=== PATIENT | male | born 1935 | race Caucasian/White ===

== ENCOUNTER → 2019-01-22 09:11 | Outpatient (CLI) | payer OTHER, SELFPAY ==
--- NOTE | 2019-01-22 | DI.MRI.S_ITS ---
PROCEDURE: MR SHOULDER RT WO CON INDICATIONS: Pain in right shoulder TECHNIQUE: Noncontrast oblique coronal T2 fast spin echo with fat saturation, oblique sagittal T1 spin echo and T2 fast spin echo with fat saturation, axial T1 spin echo and T2 fast spin echo with fat saturation through the shoulder. COMPARISON: None. FINDINGS: Image quality: Diagnostic. Rotator cuff: There is a moderate-sized full-thickness tear identified at the junction of the supraspinatus and infraspinatus tendons that measures approximately 1.5 cm in transverse dimension with retraction of the torn tendon fragments by up to approximately 2.4 cm. Additional areas of partial-thickness tearing involving the anterior distal supraspinatus tendon and the posterior distal infraspinatus tendon is present with corresponding tendinopathy. There is atrophy of these corresponding muscles. There is increased signal and thickening involving the teres minor and subscapularis tendons without significant tearing. No significant atrophy involving the subscapularis or teres minor muscles is identified. Bones and bursae: No acute fracture, dislocation, or suspicious osseous lesion is appreciated involving the osseous structures of the right shoulder. Mild degenerative changes of the glenohumeral joint are present. There are moderate degenerative changes of the acromioclavicular joint. There is a small glenohumeral joint effusion next many teeth with the subacromial subdeltoid bursa. Capsule and soft tissues: Evaluation of the labrum and the glenohumeral ligaments is difficult without intra-articular contrast. No acute ligamentous injuries are evident. There likely is a small posterosuperior labral tear extending from the 12 o'clock position to the 1 to 2 o'clock position, given increase signal at the labral cartilaginous junction along the posterosuperior labrum (image 12, series 13). The long head of the biceps tendon is normally positioned within the bicipital groove. However, there is thickening and increased signal identified involving the intra-articular portion of this tendon. There is a large partly septated fluid collection identified within the anterior aspect of the subacromial subdeltoid bursa, likely representing fluid from the full-thickness tear of the rotator cuff. IMPRESSION: 1. Moderate-sized full-thickness tear of the rotator cuff at the junction of the supraspinatus and infraspinatus tendons with additional areas of partial-thickness tearing and moderate tendinopathy. Muscle atrophy is suggestive of a chronic process. 2. Moderate subscapularis and teres minor tendinopathy without significant tearing. 3. Large amount of fluid within the subacromial subdeltoid bursa probably is related to the full-thickness tear of the rotator cuff. Clinical correlation to exclude bursitis is recommended. 4. Probable small posterosuperior labral tear with involvement of the biceps anchor. 5. Moderate tendinopathy with possible intrasubstance partial-thickness tearing involving the intra-articular portion of the biceps tendon. 6. Mild to moderate degenerative changes of the glenohumeral and acromioclavicular joints. 7. Small glenohumeral joint effusion. Dictated by: Alejo Orozco M.D. on 01/22/2019 at 11:42 Approved by: Alejo Orozco M.D. on 01/22/2019 at 11:48
== END ==
PROVIDERS: PCP Family Medicine; Visit Provider Nurse Practitioner Family
DX: M25.511 Pain in right shoulder (principal); M75.121 Complete rotator cuff tear or rupture of right shoulder, not specified as traumatic; M19.011 Primary osteoarthritis, right shoulder; M25.411 Effusion, right shoulder
CPT/HCPCS: 73221

== ENCOUNTER → 2019-09-30 08:41 | Outpatient (CLI) | payer OTHER, SELFPAY ==
--- NOTE | 2019-09-30 08:43 | DI.RAD.S_ITS ---
PROCEDURE: XR LUMBAR SPINE MIN 4V INDICATIONS: ARTHROPATHY OF LUMBAR FACET JOINT TECHNIQUE: 5 views of the lumbar spine were acquired. COMPARISON: None. FINDINGS: Bones: Multilevel degenerative endplate sclerosis and spurring. Diffuse facet arthropathy. Diffuse mild narrowing of the lumbar disc spaces with relative sparing at L3-L4. There is mild to moderate disc height loss at L1-L2. No fracture identified. Soft tissues: Overlying bowel gas pattern is normal. No suspicious soft tissue calcifications. Scattered vascular calcifications seen in the aorta. There are questionable bilateral renal calcifications however this could be superimposed debris within the bowel Oblique images: No pars defects. IMPRESSION: Mild to moderate L1-L2 disc degeneration and mild discogenic changes at the remaining lumbar spine with relative sparing at L3-L4. Multilevel facet arthropathy Dictated by: Marin Quick M.D. on 09/30/2019 at 9:38 Approved by: Marin Quick M.D. on 09/30/2019 at 9:57
== END ==
PROVIDERS: PCP Family Medicine; Visit Provider Physical Medicine & Rehabilitation
DX: M47.27 Other spondylosis with radiculopathy, lumbosacral region (principal); M51.16 Intervertebral disc disorders with radiculopathy, lumbar region
CPT/HCPCS: 72110

== ENCOUNTER 2020-11-23 07:49 | Inpatient (IN) | payer MEDICARE, SELFPAY ==
[2020-11-23] VITALS (14 sets, daily range): BP systolic 112–175; BP diastolic 58–80; PULSE 50–70; RESP 14–18; TEMP 36.2–37; O2SAT 92–98; BMI 24.4
--- NOTE | 2020-11-23 06:00 | DI.RAD.S_ITS ---
PROCEDURE: XR SHOULDER RT 1V INDICATIONS: post op films TECHNIQUE: Single frontal view of the shoulder were acquired. COMPARISON: None. FINDINGS: Bones: No fractures or dislocations. No suspicious bony lesions. Visualized ribs appear intact. Soft tissues: No suspicious soft tissue calcifications. IMPRESSION: Normal alignment after right total shoulder arthroplasty. Dictated by: Kyle Damon M.D. on 11/23/2020 at 11:47 Approved by: Kyle Damon M.D. on 11/23/2020 at 11:47
[2020-11-23] MEDS: PREGABALIN 75 MG CAPSULE PO (08:15)
[2020-11-23] MEDS: ACETAMINOPHEN 325 MG TABLET 975 MG PO (08:15)
[2020-11-23] MEDS: LACTATED RINGERS 1,000 ML 42 ML IV (08:16)
--- NOTE | 2020-11-23 09:02 | PM.PREOP ---
Pre-operative Note COVID-19 COVID-19 status: Negative Result date/Date tested (Pos, Neg/Pending): 11/21/20 Interval Note History & Physical reviewed/Exam performed by Physician: Yes Changes to H&P: No
[2020-11-23] MEDS: fentaNYL 100 MCG/2 ML INJ IV (09:09)
[2020-11-23] MEDS: MIDAZOLAM 5 MG/ML VIAL 2 MG IV (09:10)
--- NOTE | 2020-11-23 09:22 | SUR.PREOP ---
Block start time [904] . Monitoring initiated and maintained throughout procedure. Oxygen and medications given per anesthesiologist instructions. Patient remained stable throughout procedure, no adverse reactions noted. Block end time [919
[2020-11-23] MEDS: CEFAZOLIN 2 GM/100 ML FROZ.PIGGY IV (09:24)
[2020-11-23] MEDS: TRANEXAMIC ACID 1,000 MG VIAL 1000 MG INJ ×2 (09:45→11:00)
--- NOTE | 2020-11-23 09:56 | SUR.OPER ---
Beach chair with Schlein shoulder positioner. Lower body on padded OR bed. Head in foam padded head cradle, secured with straps. Non-operative arm secured <90 degrees abduction. Pillow under knees. Safety belt at thigh. Cloth tape over blanket over lower legs.
[2020-11-23] MEDS: BUPIVACAINE 0.5% W/ EPI (PF) 30 ML VIAL INJ (10:59)
--- NOTE | 2020-11-23 11:19 | P.OP_ITS ---
Operative Date/Time/Diagnoses Date of procedure: 11/23/20 Time of procedure: 11:19 Pre-op diagnosis: Right shoulder massive irreparable rotator cuff tear Post-op diagnosis: same Procedure & Clinicians Procedure: Right reverse total shoulder replacement Same procedure as scheduled: Yes Indications: The patient is had chronic right shoulder pain unresponsive to nonoperative therapies. Radiographic studies have revealed changes consistent with a massive rotator cuff tear. They have elected to proceed with reverse total shoulder replacement after discussion of the risks benefits and alternatives. Risks discussed included but were not limited to: Failure to improve, instability, infection, nerve damage, deep venous thrombosis, pulmonary embolism, stroke, coma, myocardial infarction and . Surgeon: Lester Madrid Internet Network Specialist: Clive Salinas Click Yes if Unassisted: No Anesthesia Type: General, Peripheral nerve block and Local Operative Notes Findings: Massive rotator cuff tear encompassing the upper 80% of the subscapularis the entirety of the supraspinatus and infraspinatus with relative preservation of the teres minor. Closure Type: primary Specimen(s): none sent Prosthetic devices, grafts, tissues, transplants, or devices: Implants used in this procedure were manufactured by the [employer] and included a [employer] reverse total shoulder system with a 24 mm modular base plate with a 30 mm central screw. Three 5.5 mm locking screws were used measuring 24, 28 and 16 mm in length. The glenosphere was a 33+ 4/24. There was a retaining screw inserted with this. On the humeral side there was a size 10 humeral stem with a 36 neutral suture cup and a 36+ 6/33 humeral insert. Applied: implant(s) Estimated Blood Loss (mL): 200 Blood products transfused: none Procedure in detail: The patient was seen in the preoperative area where they identified the right shoulder as the operative site and this was marked with my initials. They received preoperative antibiotics and underwent the induction of an interscalene block. They were taken to the operating room and placed on the operating room table in a supine position with the underwent the induction of a general anesthetic. There were then repositioned in the ?beach chair? position using a dedicated positioner. All pressure points were well padded. The knees were slightly bent to prevent tension on the sciatic nerves. The right arm was prepared from the fingertips to the base of the neck with ChloraPrep in the usual fashion and draped through sterile drapes. An approximately 15 cm incision was created starting at the clavicle just above the coracoid and going to the deltoid insertion. The deltopectoral interval was used to access the shoulder, the patient had of this vestigial cephalic vein and this was ligated.. The upper 1 cm of the pectoralis major was released. The biceps tendon had ruptured. There was no remaining upper subscapularis tendon this had been replaced with scar and it was released along with the remaining lower 20% of the subscapularis tendon. The shoulder was dislocated and a proximal humeral osteotomy performed using an intra medullary guide. A proximal humeral protector was then placed. Retractors were placed access the glenoid. The soft tissues were removed circumferentially around the glenoid. The guide was used to drill the guide hole in the center of the inferior glenoid. The Reamer was used until more than 70% contact was obtained. The peripheral Reamer was used. The central hole was enlarged to accommodate the screw. The depth was measured and this was tapped. The 24 mm glenoid base plate was then screwed into position. Three of the 4 holes were then filled with the appropriate length locking screws. The anterior hole had very little purchase and was left open. The glenosphere was then placed after checking for rotational and axial stability on the Mcneal taper. We then turned our attention to the humerus The proximal humeral protector was removed. Broaching was then performed beginning with a small broach and working up until a good fit with excellent rotational stability was obtained. The guide for the proximal metaphyseal reamer was then applied and the metaphysis was reamed appropriately. The trial metaphyseal portion of the body was then applied to the broach. Trial reduction s were performed and the size of the cup was optimized. Stability was checked in maximal internal and external rotation and range of motion was checked to allow access to the top of the head, internal rotation to an excess of 50? in the ?scarecrow position? and the ability to reach the groin. The appropriate final prosthetic components were then opened. The humeral prosthetic was then impacted into position. The humeral cup was placed. The joint was relocated and irrigated. The deltopectoral interval was reapproximated with 0 Vicryl. Subcutaneous layer was closed with interrupted 3-0 Vicryl and skin with a running 3 0 V lock suture and Dermabond. Subcutaneous tissues were then infiltrated with 0.5% Marcaine for postoperative pain control. An Aquacel Ag dressing was applied and the patient's arm was placed in a sling. The patient was then transferred to the recovery room in good condition having tolerated the procedure well. Complications: none Post-operative Condition: stable Disposition: PACU Plan for aftercare: The patient will be allowed to do pendulum exercises and to use his arm in front of his body below shoulder level. He will likely be discharged tomorrow when he is stable for his home environment.
--- NOTE | 2020-11-23 11:46 | PC.NURSE ---
Day shift: Pt on unit from PACU at approx 1145. Denies any pain or nausea. Oriented to room and call light. Tolerating SCD's. Aquacel is CDI. Agrees to not get OOB w/o help from staff. Rt arm is numb w/ good radial pulse. Will continue w/ post-op plan of care.
[2020-11-23] MEDS: LACTATED RINGERS 1,000 ML 100 ML IV (11:59)
[2020-11-23] MEDS: ACETAMINOPHEN 325 MG TABLET 650 MG PO ×2 (14:09→20:21)
--- NOTE | 2020-11-23 14:23 | PC.NURSE ---
Day shift: Pt OOB w/ PT this afternoon. Ambulated in halls and tolerated well. VS remain WNL. RA 95%. SUsing I.S. as instructed. Rt arm numbness remains. Denies any rt arm or shoulder pain. Aquacel CDI. Denies any nausea. Good fluid intake. Voided approx 400ml clear yellow urine.
--- NOTE | 2020-11-23 14:30 | PT.IIE ---
Current Diagnoses Other specific arthropathies, not elsewhere classified, right shoulder (11/23/20) Primary osteoarthritis, right shoulder (11/23/20) Surgery Performed Operation Date: 11/23/20 09:15 Actual Procedures p Total Shoulder Arthroplasty - Reverse(Right) - Lester Madrid MD Surgical History (Last Updated 11/17/20 @ 07:24 by Eloina Underwood, RN) Cataract extraction status History of colonoscopy Status post hernia repair Status post rotator cuff repair Medical History (Last Updated 11/17/20 @ 07:31 by Eloina Underwood, RN) Cardiac murmur 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 arthropathy, lumbar Former smoker History of echocardiogram (~2019) Hyperlipidemia Labile hypertension Left ventricular hypertrophy Lumbosacral spondylosis with radiculopathy Moderate aortic stenosis Pneumonia Primary osteoarthritis of right shoulder Prostatic hypertrophy 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 Spinal stenosis Physical Therapy Inpatient Evaluation/Re-Eval M1 PT/OT-IP Prior Functional Status Start: 11/23/20 12:24 Freq: NEEDED Status: Active Protocol: Document 11/23/20 14:30 AW (Rec: 11/23/20 15:04 AW [id number]) Medical Review Prior Functional Status Medical History Reviewed Yes Communication WNL. Pt is an effective verbal communicator. Mobility and Gait Pt is independently mobile without meaningful limit. 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 Activities of Daily Living and IADL's Pt states he has needed his to help wash his back but has otherwise remained independent with ADL's and IADL's. Social History Household Members spouse Living Arrangements House Number of Floors (Floors) One Floor Number of Stairs To Enter/Railing? 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 He also has neighbors and latter-day friends who can check in. M2 PT-IP Current Condition Start: 11/23/20 12:24 Freq: NEEDED Status: Active Protocol: Document 11/23/20 14:30 AW (Rec: 11/23/20 15:04 AW [id number]) Physical Therapy Current Condition Current Condition Evaluation Date 11/23/20 Treatment Diagnosis R reverse TSA; dec indep with ADL's Onset Date 11/23/20 Precautions Shoulder Precautions Sling,PROM,Internal Rotation to Body,No External Rotation, No Abduction,Forward Flexion to 90 degrees,Pendulums Brace soft sling for all OOB activity M3 PT-IP Subjective Start: 11/23/20 12:24 Freq: NEEDED Status: Active Protocol: Document 11/23/20 14:30 AW (Rec: 11/23/20 15:04 AW [id number]) Subjective Physical Therapy Visit Type Type Initial Evaluation Visit Start Time 13:54 Visit Stop Time 14:30 Total Visit Minutes 26 Number of ALUMNI RELATIONS COORDINATOR Visits 0 Physical Therapy Visit Comments Patient Comments Pt is willing to participate with PT Patient Goals Return to farming activity and table tennis. Therapy Pain Assessment Pain When Pain Assessed During Mobility Pain Present Pain Present Denied Pain M4 PT-IP Mobility and Gait Start: 11/23/20 12:24 Freq: NEEDED Status: Active Protocol: Document 11/23/20 14:30 AW (Rec: 11/23/20 15:04 AW [id number]) PT-Bed Mobility Assessment Sit to Supine Sit to Supine Standby Assistance,Head of Bed Elevated Scooting Scooting Up and Down in Bed Standby Assistance PT-Transfer Assessment Sit to and From Stand Sit to and from Stand Contact Guard Assistance Equipment Transfer Assistive Device Gait Belt Orthotic/Prosthetic Devices or Brace: Yes Transfers Transfer Destination Bed Transfer Technique Stand Step Pivot Transfer Ability Level of Assist Contact Guard Assistance Comments Mobility Comments Pt was sitting up in the bed with shoulder sling loosely applied as PT arrived. With HOB elevated, pt completed supine to sit SBA with no complaint of pain. He stood [facility] and walked to the sink for education on proper sling fitting. Pt was able to stand at the sink with good balance SBA as PT adjusted the sling. Pt ambulated to the bathroom and used the urinal to void in standing SBA. PT assisted pt to don his face mask for ambulation in the hallway. Pt walked a total of 250 feet SBA to [facility] before returning to the room and transferring back to bed SBA. Pt was positioned with call light and all needs within reach and bed alarm armed for safety. Gait Assessment Gait Gait Assistance Required: Standby Assistance,Contact Guard Assist Distance (Feet) 250 Able to Maintain Weight Bearing Status Yes During Gait Assistive Devices Assistive Device Gait Belt Orthotic/Prosthetic Devices or Brace: Yes Gait Deviations General Gait Pattern Antalgic,Decreased Feet Clearance,Lateral Trunk Lean Factors Limiting Gait Function Factors Limiting Gait Function Decreased Activity Tolerance, Poor Balance Comments Gait Comments Pt ambulated without AD and required SBA with increase to CGA around corners and around obstacles. Stair Climbing Assessment Comments Stair Climbing Comments Not assessed. No stairs at home. PT-Balance Assessment Sitting Balance and Reactions Static Sitting Balance Ability Good Dynamic Sitting Balance Ability Good Standing Balance and Reactions Static Standing Balance Ability Good Dynamic Standing Balance Ability Good Device Used no AD M5 PT-IP Objective Assessments Start: 11/23/20 12:24 Freq: NEEDED Status: Active Protocol: Document 11/23/20 14:30 AW (Rec: 11/23/20 15:04 AW [id number]) Orientation Orientation/Cognition Level of Alertness Alert Orientation Name,Day of Week,Place, Situation Language Function Ability No Deficits Noted Safety Awareness Understands Safety Issues Memory Description No Deficits Noted Gross Range of Motion Upper Extremity ROM Assessment Right Impaired Lower Extremity ROM Assessment Within Functional Limits Strength Upper Extremity Strength Assessment Right Impaired Lower Extremity Strength Assessment Within Functional Limits Coordination Assessment Gross Coordination Gross Coordination WNL Sensation Assessment Sensation Gross Sensation Right UE Impaired Light Touch Impaired Proprioception (Position) Impaired Sensation Description Numbness Comments Sensation Comments Pt reports numbness in RUE with distal more affected than proximal. M6 PT-IP Treatment Start: 11/23/20 12:24 Freq: NEEDED Status: Active Protocol: Document 11/23/20 14:30 AW (Rec: 11/23/20 15:04 AW [id number]) Physical Therapy Treatment Exercises Exercises Shoulder Pendulums,Elbow Flexion/Extension,Wrist ROM, Hand ROM Education Education Provided Precautions,Weight Bearing Status,Post-Op Packet,Safety Other Treatments Other Treatment Performed Provided education on role of PT, plan of care, post-op precautions, and proper sling fitting for optimal support. M7 PT-IP Assessment and Plan Start: 11/23/20 12:24 Freq: NEEDED Status: Active Protocol: Document 11/23/20 14:30 AW (Rec: 11/23/20 15:04 AW [id number]) PT Summary Assessment and Plan Potential Rehabilitation Potential Excellent Status of Condition at Evaluation Stable Summary Impairments ROM,Strength,Balance,Bed Mobility,Transfers,Gait Assessment Summary Jose is an active 85 yo man seen for PT evaluation on POD0 following right reverse TSA. He is independent in all regards at baseline. 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 On evaluation, pt required SBA to CGA with all mobility and has limited sensation in RUE. PT anticipates pt will be safe to discharge home with assist once medically cleared. Goals Bed Mobility Goal Independent Transfer Goal Independent Gait Goal Independent Gait Distance 250 Other Goals - bed mobility to be completed with HOB flat Days to Meet Goals 2 Frequency of Treatment Frequency Of Treatment Twice a Day Treatment Plan Physical Therapy Treatment Plan Bed Mobility Training,Transfer Training,Gait Training, Therapeutic Exercise,Balance Retraining,Post Op Education, Discharge Planning,Hot or Cold Pack,Neuromuscular Re-ed Other Recommendations and Next Treatment review sling fitting, mobility Focus as tolerated Recommendations To Nursing Amount of Assist Needed 1 Person Assist Discharge Recommendations PT Discharge Recommendations Home with Assistance Transportation Needs at Discharge Private Vehicle
[2020-11-23] MEDS: ASPIRIN EC 81 MG TABLET PO (20:20)
[2020-11-23] MEDS: DOCUSATE 100 MG CAPSULE PO (20:20)
[2020-11-24 00:30] VITALS: BP 114/60; PULSE 55; RESP 16; TEMP 37.2; O2SAT 95
[2020-11-24 04:45] VITALS: BP 130/64; PULSE 57; RESP 18; TEMP 36.6; O2SAT 95
[2020-11-24 05:32] LABS: Hematocrit 34.6 % (41-53); Hemoglobin 11.4 g/dL (13.5-17.5)
[2020-11-24 07:22] VITALS: BP 117/60; PULSE 56; RESP 18; TEMP 36.6; O2SAT 95
--- NOTE | 2020-11-24 07:47 | P.PN_ITS ---
Subjective Subjective Date Patient Seen: 11/24/20 Time Patient Seen: 07:47 Interval history: POD#1 s/p right reversed total shoulder arthroplasty with Dr. Madrid. Patient doing very well this morning. No complaints. He is eating and voiding without difficulty or assistance. Exam Vital Signs (past 8 hours): - 11/24/20 00:30 11/24/20 04:45 Temperature 98.9 F 97.9 F Pulse Rate 55 L 57 L Respiratory Rate 16 18 Blood Pressure 114/60 130/64 Pulse Oximetry 95 95 Oxygen Delivery Method Room Air Oxygen Flow Rate 0 Narrative Exam Narrative: Patient is sitting in bedside chair no acute distress. He is alert orient x3. Dressing on right shoulder is CDI. Sensation intact to light touch throughout bilateral upper extremities. Radial pulses symmetrical. 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 Wearing a well-fitting sling. 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 The patient will be allowed to do pendulum exercises and to use his arm in front of his body below shoulder level. ASA 81 mg b.i.d. for DVT prophylaxis. [employer] script provided for home. Patient will likely discharge home this afternoon.
[2020-11-24] MEDS: DOCUSATE 100 MG CAPSULE PO (08:17)
[2020-11-24] MEDS: CELECOXIB 200 MG CAPSULE PO (08:18)
[2020-11-24] MEDS: ASPIRIN EC 81 MG TABLET PO (08:18)
[2020-11-24] MEDS: ACETAMINOPHEN 325 MG TABLET 650 MG PO (08:19)
[2020-11-24 08:25] VITALS: BP 117/60; PULSE 54
[2020-11-24 08:26] VITALS: BP 117/60; PULSE 54
[2020-11-24 09:00] VITALS: O2SAT 97
--- NOTE | 2020-11-24 09:25 | PT.IPTN ---
Current Diagnoses Other specific arthropathies, not elsewhere classified, right shoulder (11/23/20) Primary osteoarthritis, right shoulder (11/23/20) Surgery Performed Operation Date: 11/23/20 09:15 Actual Procedures p Total Shoulder Arthroplasty - Reverse(Right) - Lester Madrid MD Physical Therapy Treatment Note M2 PT-IP Current Condition Start: 11/23/20 12:24 Freq: NEEDED Status: Active Protocol: Document 11/23/20 14:30 AW (Rec: 11/23/20 15:04 AW [id number]) Physical Therapy Current Condition Current Condition Evaluation Date 11/23/20 Treatment Diagnosis R reverse TSA; dec indep with ADL's Onset Date 11/23/20 Precautions Shoulder Precautions Sling,PROM,Internal Rotation to Body,No External Rotation, No Abduction,Forward Flexion to 90 degrees,Pendulums Brace soft sling for all OOB activity M3 PT-IP Subjective Start: 11/23/20 12:24 Freq: NEEDED Status: Active Protocol: Document 11/24/20 09:25 AW (Rec: 11/24/20 10:15 AW [id number]) Subjective Physical Therapy Visit Type Type Treatment Note Visit Start Time 09:07 Visit Stop Time 09:25 Total Visit Minutes 18 Number of MANAGER FORMS Visits 0 Physical Therapy Visit Comments Patient Comments Can we review these exercises ? Therapy Pain Assessment Pain When Pain Assessed During Mobility Pain Present Pain Present Denied Pain M4 PT-IP Mobility and Gait Start: 11/23/20 12:24 Freq: NEEDED Status: Active Protocol: Document 11/24/20 09:25 AW (Rec: 11/24/20 10:15 AW [id number]) PT-Bed Mobility Assessment Supine to Sit Supine to Sit Standby Assistance Sit to Supine Sit to Supine Standby Assistance Scooting Scooting Up and Down in Bed Standby Assistance PT-Transfer Assessment Sit to and From Stand Sit to and from Stand Standby Assistance Equipment Transfer Assistive Device Gait Belt Orthotic/Prosthetic Devices or Brace: Yes Transfers Transfer Destination Chair Transfer Technique Stand Step Pivot Transfer Ability Level of Assist Standby Assistance Comments Mobility Comments Pt was sitting up in the chair as PT arrived. He stood, walked around the room, went to the mirror for continued education on sling donning and doffing, and then ambulated around the unit without AD SBA . On return to the room, pt transferred to the chair SBA and was left with call light and all needs in reach. Gait Assessment Gait Gait Assistance Required: Standby Assistance Distance (Feet) 350 Able to Maintain Weight Bearing Status Yes During Gait Assistive Devices Assistive Device Gait Belt Orthotic/Prosthetic Devices or Brace: Yes Gait Deviations General Gait Pattern Antalgic,Decreased Feet Clearance Factors Limiting Gait Function Factors Limiting Gait Function Decreased Activity Tolerance Comments Gait Comments Pt requried no more than SBA at this encounter, demonstrating good safety awareness and obstacle navigation. Stair Climbing Assessment Evaluation Level of Assist On Stairs Standby Assistance Devices Stair Climbing Assistive Devices None Technique/Endurance Stair Climbing Direction Ascend and Descend Stair Climbing Technique Step Over Step Number of Steps Climbed 3 Stair Climbing Set # Repetitions (reps) 2 PT-Balance Assessment Sitting Balance and Reactions Static Sitting Balance Ability Good Dynamic Sitting Balance Ability Good Standing Balance and Reactions Static Standing Balance Ability Good Dynamic Standing Balance Ability Good Device Used no AD M5 PT-IP Objective Assessments Start: 11/23/20 12:24 Freq: NEEDED Status: Active Protocol: Document 11/23/20 14:30 AW (Rec: 11/23/20 15:04 AW [id number]) Orientation Orientation/Cognition Level of Alertness Alert Orientation Name,Day of Week,Place, Situation Language Function Ability No Deficits Noted Safety Awareness Understands Safety Issues Memory Description No Deficits Noted Gross Range of Motion Upper Extremity ROM Assessment Right Impaired Lower Extremity ROM Assessment Within Functional Limits Strength Upper Extremity Strength Assessment Right Impaired Lower Extremity Strength Assessment Within Functional Limits Coordination Assessment Gross Coordination Gross Coordination WNL Sensation Assessment Sensation Gross Sensation Right UE Impaired Light Touch Impaired Proprioception (Position) Impaired Sensation Description Numbness Comments Sensation Comments Pt reports numbness in RUE with distal more affected than proximal. M6 PT-IP Treatment Start: 11/23/20 12:24 Freq: NEEDED Status: Active Protocol: Document 11/24/20 09:25 AW (Rec: 11/24/20 10:15 AW [id number]) Physical Therapy Treatment Exercises Exercises Shoulder Pendulums,Elbow Flexion/Extension,Wrist ROM, Hand ROM Education Education Provided Precautions,Safety Other Treatments Other Treatment Performed Reviewed sling fitting and ROM exercises with pt able to return demonstrate. M7 PT-IP Assessment and Plan Start: 11/23/20 12:24 Freq: NEEDED Status: Active Protocol: Document 11/24/20 09:25 AW (Rec: 02/02/21 10:15 AW [id number]) PT Summary Assessment and Plan Summary Impairments ROM,Strength,Balance,Bed Mobility,Transfers,Gait Progress Towards Goals Progressing Toward Goals Assessment Summary Jose reports no pain but his right hand is noticably swollen. Notified RN of swelling. He completed all mobility SBA and shows good awareness of his surroundings and his current limitations. Pt is safe to discharge home with assist. Goals Bed Mobility Goal Independent Transfer Goal Independent Gait Goal Independent Gait Distance 250 Other Goals - bed mobility to be completed with HOB flat Frequency of Treatment Frequency Of Treatment Discharge Recommendations To Nursing Amount of Assist Needed Standby Assistance Discharge Recommendations PT Discharge Recommendations Home with Assistance Transportation Needs at Discharge Private Vehicle
--- NOTE | 2020-11-24 13:05 | CM.DANOTE ---
Discharge Planning/Care Management DCP: assessment: case received, EMR reviewed and d/c order noted. Met with pt; introduced self and role. Pt is found up, dressed, sitting on window seat in room. Pt is an 85 year old who admitted yesterday for a schedule R TSA. Payer: [facility] Surgeon: Dr. Madrid Pt has worked with PT today and has been moblizing independently in the halls, pushing IV pole. Shoulder sling in place. Pt confirms that [place] who is available for prn supportive care. He has a friend who will be picking him up at d/c. Discussed priority board process and pt confirmed this would be helpful. His friend should be here soon and they plan to take the 3:05PM boat back to [place]. PB is now process via [employer]EF[employer] and pt's copy is given to him. FLORENTIN Bal is updated. She will be going over the final d/c paperwork with pt. Advanced directive, confirm from FAMILY Start: 11/23/20 12:28 Freq: Q24H Status: Active Protocol: Document 11/23/20 12:36 YAD (Rec: 11/23/20 12:39 YAD [id number]) Advance Directive, confirm on record Time 12:37 Person contacted patient Copy received No Document 11/24/20 12:40 KAB (Rec: 11/24/20 12:40 KAB [id number]) Advance Directive, confirm on record Time 12:37 Person contacted patient Copy received No Time 12:40 Person contacted Pt Copy received No CM Discharge Assessment Start: 11/24/20 13:00 Freq: Status: Active Protocol: Document 11/24/20 13:00 ITV (Rec: 11/24/20 13:01 ITV [id number]) Discharge Planning Assessment Advance Directives? Yes History Provided By Patient,Medical Record Prior Living Arrangements House Household Members spouse Independent with ADL's Yes Is patient alert and oriented? Yes Discharge Plan Home Pre-Anesthesia Assessment Start: 11/16/20 12:41 Freq: Status: Active Protocol: Document 11/16/20 12:41 VLJ (Rec: 11/16/20 12:43 VLJ [id number]) Pre-Anesthesia Assessment PAC Comment Physically active, gardening, operates a produce stand, walks a steep hill multiple times a day (r/t the gardening ) NOTE: Pt denies having AAA repair, no mention of AAA in his records from the general practitioner or PCP Preferred Name Jose Patient Information Reviewed Via Phone Assessment Assessment Completed With Patient Diagnostic Results BMP/CMP,CBC,EKG,Other Comment A1c; Covid 11/21/20 @ Primary Care Provider Av Clarke Seen Specialist in Last 12 Months Yes Specialist Seen Screw Machine Set Up Operator Tool,Orthopedist,Other Comment Pain Primary Language Albanian Hand Bobbin Cleaner Required No Height 172.72 cm Hearing Ability Hard of Hearing Visual Impairment Partially Limited Visual Assist Glasses Dentition Type Teeth, Natural Present Barriers to Learning Auditory,Visual Other Aids No Hx Anesthesia Reactions No Hx Family Anesthesia Reaction No Hx Malignant Hyperthermia No Hx Blood Transfusions No Hx Blood Transfusion Reaction No Anesthesia Review Requested No Infusion Rn No alcohol intake current alcohol intake frequency 0-2 drinks per day Alcohol Intake Frequency Other: 5 oz/day Smoking Status Former smoker Tobacco type pipe how long ago did patient quit smoking 35 years Substance Use Type does not use Pain Present Denied Pain Musculoskeletal Symptoms Joint Pain,Limited Range of Motion,Numbness,Tingling History of Falling (Recent or History of No ) Comment occasional balance issue working in the [place] Patient is completely paralyzed or No completely immobile Ambulatory Aid None/bed rest/nurse assist Gait/Transferring Normal/bedrest/immobile Mental Status Oriented to own ability Is patient on oxygen? No Does patient have JOY/SOB No Hx Sleep Apnea No CPAP/BIPAP use not prescribed Currently Taking a Beta Alicia Yes: carvedilol Can You Climb a Flight of Stairs Without Yes SOB Hx Chest Pain Yes: Nov 11 Slater Hx SOB No Anti-Coagulant Therapy No Has a Screw Machine Set Up Operator Tool Yes: Stephanie; OV 09/24/20 scanned Cardiac Testing Yes: Echo 06/11 scanned Pacemaker Rep Required? No Comment Daily wide fluctuations in BP Additional comment Nuc Stress, EKG 11/11 scanned Diet Type At Home Regular dysphagia Yes: initially coughs with first few bites Comment loose stool q2-3 weeks Bladder Pattern Nocturia Urinary Catheter Present No Hx Urinary Self Catheterization No Diabetes No Hx Drug Resistant Organism No Presence of External or Internal Medical Yes: Mesh Devices Have you had any close contact with Yes someone diagnosed with COVID-19? Are you experiencing any of these No symptoms symptoms? Evaluation/Screening for possible COVID- Yes 19 infection completed? Marital Status Lives With spouse Prior Living Arrangements House Number of Floors (Floors) One Floor Number of Stairs To Enter/Railing? no stairs Support System Spouse Does the Patient Have Assistance After Yes Surgery Patient Discharge Plan Description Return Home Feels Safe in Current Environment Yes Been Physically Hurt or Threatened By a No Person in Current Environment Do you have thoughts of harming yourself None or others? Are you currently considering suicide? No Do you have a plan to hurt yourself or No Plan others? Do You Have Any Spiritual Beliefs That No May Affect Your HC Choices? Do You Have Any Cultural Practices That No May Affect Your HC Choices? Who Can We Speak to About Patient's Care Friends and Family Identifying Code for Release of Patient declined Information Health Care Proxy/Next of Kin - Jessica Friedman Health Care Proxy Phone Number L [phone]; C [phone] Emergency Contact Name Gio Friedman Emergency Contact Phone Number L [phone]; C [phone] Advance Directives? Yes Requested Patient Bring Advanced Yes Directives DOS Power of Dispatch Manager Yes Power of Dispatch Manager Name Asya Friedman Power of Dispatch Manager Phone Number L [phone]; C [phone] PAC Instructions Assistance for 24 hours post- op,Do not shave/clip surgical site,Durable medical equipment ,Medications to take/avoid, Nasal antibiotic,No ETOH/ petroleum product on skin DOS, NPO,Ortho class,Post-op transportation,Pre-op antibiotic,Pre-surgical wash, Sensory aids,Sturdy shoes/ comfortable clothes,Do not bring valuables and remove jewelry
--- NOTE | 2020-11-24 13:17 | PC.NURSE ---
Pt dressed with assistance, all persona belongings placed in personal bag. Discharge instructions/education given to pt, discussed- post-op precautions, shoulder repair education, s/s of infection, s/s of stroke, f/u appts, medications and medication safety, reasons to seek medical attention. IV removed, intact, tolerated well. Pt expressed understanding of all discharge instructions. Pt left via w/c accompanied by RN APPEALS, to friend in POV.
== END 2020-11-24 13:20 | disposition home or self-care (01) | DRG 483 ==
PROVIDERS: Admitting Provider Orthopaedic Surgery; PCP Family Medicine; Referring Provider Family Medicine; Visit Provider Orthopaedic Surgery
PROC: 0RRJ00Z Replacement of Right Shoulder Joint with Reverse Ball and Socket Synthetic Substitute, Open Approach (ICD-10-PCS; CPT 23472; principal; 2020-11-23 09:15)
DX: M75.111 Incomplete rotator cuff tear or rupture of right shoulder, not specified as traumatic (principal); M19.011 Primary osteoarthritis, right shoulder; Z20.822 Contact with and (suspected) exposure to COVID-19; I10 Essential (primary) hypertension; Z87.891 Personal history of nicotine dependence
CPT/HCPCS: 36415; 64450; 73020; 85014; 85018; 87635; 97110; 97161; 97530; C1776; C9803; J0330; J0690; J1100; J2250; J2405; J2704; J3010

== ENCOUNTER → 2023-09-13 12:21 | Outpatient (CLI) | payer MEDICARE, SELFPAY ==
[2020-11-23 12:17] VITALS: BMI 24.4
--- NOTE | 2023-09-13 | DI.RAD.S_ITS ---
Bone Density Report Name: JACQUELINE HARDIN Age: 88 Sex: Male Ethnicity: White Date of : 1935 Indication: screening for osteoporosis; Referring Provider: ERNESTO MONROY Study: Bone densitometry was performed. Exam Date: September 13, 2023 Accession number: [id number] Bone Density: Region BMD T-score Z-score Classification AP Spine(L2, L3, L4) 1.323 2.2 3.2 Normal Femoral Neck (Left) 0.982 1.2 2.1 Normal Total Hip (Left) 1.090 1.2 1.6 Normal Femoral Neck (Right) 1.115 2.4 3.1 Normal Total Hip (Right) 1.131 1.5 1.9 Normal Total Hip Mean 1.111 1.4 1.8 Normal World Health Organization criteria for BMD impression classify patients as: Normal (T-score at or above -1.0), Osteopenia (T-score between -1.0 and -2.5), or Osteoporosis (T-score at or below -2.5). 10-year Fracture Risk: FRAX not reported because: All T-scores for Spine Total, Hip Total, Femoral Neck at or above -1.0 Impression: The patient has normal bone mass. Discussion: BONE DENSITY IS ABOVE THE MINIMUM DESIRABLE LEVEL AT ALL SKELETAL SITES TESTED. This patient's bone mineral density is above the minimum desirable level (T-score -1.0 or better) at all sites measured. The patient should follow a healthful lifestyle (good nutrition with adequate calcium and vitamin D, and appropriate weight-bearing exercise). Follow-Up: Consider repeating this study in 5 years or sooner if there is some new clinical indication. Reported by: INOCENCIO STILES M.D. on 09/13/2023 12:41:00 PM.
== END ==
PROVIDERS: PCP Family Medicine; Referring Provider Orthopaedic Surgery Adult Reconstructive Orthopaedic Surgery; Visit Provider Orthopaedic Surgery Adult Reconstructive Orthopaedic Surgery
DX: M81.8 Other osteoporosis without current pathological fracture (principal); M16.12 Unilateral primary osteoarthritis, left hip
CPT/HCPCS: 77080

== ENCOUNTER 2023-09-15 07:39 | Day surgery (SDC) | payer MEDICARE, SELFPAY ==
[2020-11-23 12:17] VITALS: BMI 24.4
[2023-09-04 13:45] VITALS: BMI 23.6
[2023-09-15] VITALS (10 sets, daily range): BP systolic 108–156; BP diastolic 48–91; PULSE 57–74; RESP 13–20; TEMP 35.8–36.9; O2SAT 93–98; BMI 23.6; BMI 25.2
--- NOTE | 2023-09-15 | DI.RAD.S_ITS ---
PROCEDURE: XR HIP W PEL IF DONE LT 2V INDICATIONS: TOTAL HIP TECHNIQUE: 2 view(s) of the hip acquired. COMPARISON: None. FINDINGS: Bones: Patient is status post left hip arthroplasty, with hardware components in expected positions. The hip joint appears congruent. The visualized bony structures appear intact. Soft tissues: Overlying postoperative changes are noted. No suspicious soft tissue densities. IMPRESSION: Expected intraoperative appearance of a hip arthroplasty. Dictated by: Mauri Alex M.D. on 09/15/2023 at 13:28 Approved by: Mauri Alex M.D. on 09/15/2023 at 13:28
--- NOTE | 2023-09-15 06:00 | DI.RAD.S_ITS ---
PROCEDURE: XR HIP W PEL IF DONE LT 2V INDICATIONS: BASSAM TECHNIQUE: AP pelvis and lateral view of the left hip acquired. COMPARISON: [facility], CR, XR PELVIS WITH LATERAL HIP LEFT, 08/08/2023, 11:00. [facility], CR, XR HIP W PEL IF DONE LT 2V, 09/15/2023, 12:03. FINDINGS: Bones: Patient is status post left hip arthroplasty, with hardware components in expected positions. The hip joint appears congruent. The visualized bony structures appear intact. Moderate to severe right hip joint degeneration redemonstrated. 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 Soft tissues: Overlying postoperative changes are noted. No suspicious soft tissue densities. Herniorrhaphy clips. IMPRESSION: 1. Expected post-operative appearance of a hip arthroplasty. 2. Moderate right hip joint degeneration. Dictated by: Juan R VALLECILLO Interpreted: Afshin Wise MD on 09/15/2023 at 13:52 Transcribed by: ZAIDA on 09/15/2023 at 13:53 Approved by: Afshin Wise M.D. on 09/15/2023 at 15:35
[2023-09-15] MEDS: ACETAMINOPHEN 325 MG TABLET 975 MG PO (09:43)
[2023-09-15] MEDS: MELOXICAM 7.5 MG TABLET PO (09:43)
[2023-09-15] MEDS: LACTATED RINGERS 1,000 ML 42 ML IV (09:46)
--- NOTE | 2023-09-15 09:54 | PM.PREOP ---
Pre-operative Note Interval Note History & Physical reviewed/Exam performed by Physician: Yes Changes to H&P: No
--- NOTE | 2023-09-15 10:33 | PM.OP.1 ---
Operative Date/Time/Diagnoses Date of procedure: 09/15/23 Post-op diagnosis: same Procedure & Clinicians Procedure: Left total knee arthroplasty Same procedure as scheduled: Yes Surgeon: Abad Kendall Coat Joiner Lockstitch: Rosa Gonzalez Anesthesia Type: General, Peripheral nerve block and Local Operative Notes Estimated Blood Loss (mL): 150 Tourniquet time (min): 60 Procedure in detail:
[2023-09-15] MEDS: CEFAZOLIN 2 GM/100 ML PREMIX 100 ML IV ×2 (11:10→18:43)
[2023-09-15] MEDS: TRANEXAMIC ACID 1,000 MG VIAL 1000 MG INJ ×2 (11:15→13:09)
--- NOTE | 2023-09-15 11:36 | SUR.OPER ---
Patient supine on padded [place] table, one arm on padded arm board at <90, other arm padded and secured with tape across patient's chest, both legs secured in padded traction boots and positioned per surgeon, padded post at patient's groin, pressure points checked and padded.
[2023-09-15] MEDS: ROPIVACAINE/EPI/CLONIDINE/KET 50 ML SYRINGE INJ (11:43)
--- NOTE | 2023-09-15 13:42 | P.OP_ITS ---
Operative Date/Time/Diagnoses Date of procedure: 09/15/23 Pre-op diagnosis: Left hip arthritis Post-op diagnosis: same Procedure & Clinicians Procedure: Left total hip arthroplasty Same procedure as scheduled: Yes Surgeon: Abad Kendall Sewer Separation Designer: Rosa Gonzalez Anesthesia Type: General, Peripheral nerve block and Local Operative Notes Prosthetic devices, grafts, tissues, transplants, or devices: Depuy [place] 56 mm cup with no screws, Depuy Actis size 6 high offset stem, 36 mm +5 ceramic head Estimated Blood Loss (mL): 200 Procedure in detail: This 88-year-old male had 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 He was evaluated in clinic and complained of significant activity limiting pain because of his arthritis. He was counseled regarding operative and nonoperative management of his arthritis and wished to proceed with total hip arthroplasty. Risks and benefits were explained in detail. All questions were answered. He was met in the preoperative holding area the day of surgery. The operative site was marked and informed consent was signed. All questions were again answered. In preparation for the surgery I had obtained a DEXA scan which demonstrated a T- score of +1.2 in his operative hip. I had considered using cemented fixation for his hip given his age however given his high bone quality I elected to proceed with uncemented fixation. I discussed this with him and his family. He was brought back to the operating room and general anesthesia was induced. A regional nerve block was performed. The patient was transferred to the [place] table and prepped and draped in the usual sterile fashion. A time-out procedure was performed. A physician lead assistant manager was present for room set up, soft tissue retraction, wound closure, and was necessary for the performance of the surgery. A direct anterior approach to the left hip was utilized. The fascia over the TFL was incised and reflected laterally. A Cobra retractor was placed over the superior femoral neck. The lateral circumflex vessels were tensioned with a self retractor and coagulated. A 2nd Cobra retractor was placed on the inferior femoral neck. A retractor was placed onto the anterior wall and the reflected head of rectus femoris was released. A capsulotomy was performed in line with the femoral neck. Tag stitches were placed in the superior and inferior leaflets of the capsule. A soft tissue protector was placed over these. The capsulotomy was extended medially and laterally and the Cobra retractors were placed intracapsularly. The capsulotomy was extended down to the lesser trochanter and a neck cut was planned relative to the lesser trochanter. The neck was cut at 60?. The femoral head was removed using a femoral head extractor. This was measured in order to determine an appropriate Reamer size. Retractors were placed on the anterior wall just outside of the labrum and on the posterior wall. The labrum was resected sharply. The pulvinar was coagulated and excised. The inferior capsule was released. I started with a size 53 Reamer. I reamed up to a size 55 and had good tension with this. I verified appropriate Reamer depth fluoroscopically. I inserted a size 56 cup a nd manipulated in place. I obtained fluoroscopy which indicated that it was excessively vertical and therefore attempted to manipulate it to reoriented into a more horizontal position. This was quite challenging to do as the cup had already obtained very good inseam leveler in the acetabulum. Because of this I elected not to place any screws. I was able to eventually free it from the acetabulum and impact it in a more horizontal position by adducting the operative leg. I obtained fluoroscopy indicating appropriate abduction and anteversion angles. I placed a 36 mm liner and verified that it was locked in place by testing it with a tonsil. I performed an obturator nerve block inferior to the cup using approximately 10 mL of a mixture of ropivacaine epinephrine clonidine and Toradol All of the retractors were removed and a retractor was placed over the greater trochanter. Traction was applied at 90? of external rotation and the lateral capsule was released. This was extended down to the nose of the greater trochanter. Traction was taken off and a [place] hook was placed in the proximal femur. Using this to manipulate the femur away from the acetabulum to ensure the greater trochanter did not impinge on the cup, with traction off in the leg at 90? of external rotation the hip was hyperextended and adducted. The hip was externally rotated and elevated. I was able to achieve appropriate broaching position without releasing the conjoined tendon or the piriformis. The femoral shaft was opened up with an opening broach and a rasp. I initially broached up to a size 4. This was reduced and was noted to be grossly undersized. I therefore returned to the broaching position and broached up to a size 6. This was rotationally stable. I placed a high offset neck and a +5 trial head on the size 6 broach, removed all of the retractors, returned to neutral hip extension and reduced the hip. This was stable with maximum external rotation as well as a 45 degree drop test. It had appropriate leg length and offset on an AP fluoroscopic image. It did appear to be slightly undersized on an AP x-ray however on a lateral x-ray with the hip at 90? of external rotation the stem a ppeared to be filling distally. I therefore returned to the broaching position, replaced all the retractors, and inserted a size 6 high offset stem. The stem did not go as far down the canal as the broach had. The collar sat slightly proud relative to my prior calcar planing. Evaluation of the fluoroscopic images of the AP pelvis indicated that this slight increase in length would not excessively over lengthened the leg. I therefore placed a ceramic +536 mm head on a clean dry trunnion and impacted it into place. I removed all of the retractors and reduced the hip. It had appropriate tension, was stable with maximum external rotation to 105?, was stable with a 45 degree drop test, and had appropriate leg length and offset on AP fluoroscopic images. I base of the wound in a dilute mixture of Betadine and peroxide. I closed the wound using a combination of Vicryl, Stratafix, and Monocryl. Dermabond and a soft dressing were applied. The patient was awoken from anesthesia transferred to the PACU and awoke without complication. Post-operative Plan for aftercare: Weightbearing as tolerated Aspirin 81 b.i.d. Anticipate discharge home later today after working with physical therapy Patient lives [place] [address] [facility] and will need to take a ferry home but would be able to do that later this evening or could stay in a hotel nearby to allow him to take an early ferry in the morning
[2023-09-15] MEDS: OXYCODONE IR 5 MG TABLET PO (13:56)
[2023-09-15] MEDS: ONDANSETRON 4 MG/2 ML INJ IV (13:57)
--- NOTE | 2023-09-15 14:02 | P.PN_ITS ---
Subjective Subjective Interval history: [facility] inpatient primary joints protocol: ? Above all else the entire care team needs to communicate a clear and consistent message to the patient that this surgery was performed in order to regain motion in their effected leg. Movement represents the best avenue towards early postoperative recovery.??The patient should be encouraged to move their operative limb, spend time in a chair instead of the bed, and ambulate as much as possible ?? As soon as the patient arrives from the PACU on the floor they should immediately change out of their hospital gown into their own clothing? ?? Physical therapy should be conducted as soon as feasibly possible.??If due to logistic reasons a physical therapist is unable to ambulate with the patient following surgery because they are unavailable or the patient arrives on the floor after the physical therapists have left for the day, a HEDIS MANAGER or nursing staff should help the patient ambulate in the halls?on the night of surgery ? The IV should be locked unless it is being used to administer postoperative antibiotics to allow the patient to ambulate without their IV tower. If the patient is ready to ambulate during a time when IV fluids or IV antibiotics are being administered, they can be paused to allow ambulation as ambulation is the most important aspect of their postoperative recovery?? ? All patients undergoing a primary joint replacement will discharge home.??There is very strong evidence indicating that discharge to a assisted facility is an independent risk factor for numerous complications including periprosthetic joint infection.??Discharge to a assisted facility should not be discussed with patients undergoing a primary joint replacement.?? ? Opioids should be limited as much as possible. Many patients will be able to go through their entire postoperative recovery without ever requiring a single dose of opioids.??This includes in the PACU.??Patient should not receive any opioids unless they are complaining of significant pain.??Numerous multimodal strategies are utilized for every patient in order to control their pain.??This includes nerve blocks, injection of local anesthetic throughout the entire surgical site, acetaminophen, NSAIDs, and cryotherapy.?Oxycodone 5 mg is ordered on all patients not on chronic opioids prior to surgery.??No IV opioids are ordered.??If a patient fails to achieve adequate pain control following administration of 5 mg oxycodone, a second 5 mg administration can be utilized but should not be given unless it has been an hour since they had their first dosage. IV opioids are associated with much more severe nausea, constipation, alterations in mental status and respiratory depression and should be avoided.? ?? Cryotherapy is an essential component of pain control.??The small ice bags provided by the hospital do not get the surgical site cold enough to actually provide any analgesic effect.??Patients can either utilize a cryotherapy device which provides continuous cold fluid to the surgical site or a patient- belongings bag can be filled with ice and placed directly on the surgical site.??Solidifier powder can be placed inside of this patient belongings bag to limit the amount of moisture which accumulates around it, however if this is not available then wet sheets are preferable to administering excessive opioids? - Patients should be rapidly mobilized the day of surgery with the intention of discharging home without staying overnight. Not all patients will be able to return home the same day as their procedure, however this is the goal for all patients undergoing a primary joint replacement Exam Vital Signs (past 8 hours): - 09/15/23 09:32 09/15/23 13:35 09/15/23 13:40 Temperature 97.6 F 98.4 F Pulse Rate 60 64 63 Respiratory Rate 20 18 13 Blood Pressure 126/50 L 108/50 L 127/48 L Pulse Oximetry 97 95 95 Oxygen Delivery Method Room Air Simple Mask Room Air Oxygen Flow Rate 6 09/15/23 13:45 Temperature Pulse Rate 64 Respiratory Rate 13 Blood Pressure 130/54 L Pulse Oximetry 95 Oxygen Delivery Method Room Air Oxygen Flow Rate Oxygen Delivery Method Room Air Oxygen Flow Rate 6 [facility] Medical History (Updated 09/05/23 @ 12:17 by Priyanka Enrique RN) Asthma History of COVID-19 (~2020) Hyperlipidemia Retinoschisis Prostatic hypertrophy Cardiac murmur Left ventricular hypertrophy History of echocardiogram (~2019) Former smoker Spinal stenosis Pneumonia Labile hypertension Moderate aortic stenosis 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 arthropathy, lumbar Lumbosacral spondylosis with radiculopathy Surgical History (Updated 09/04/23 @ 13:56 by Priyanka Enrique RN) 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
[2023-09-15] MEDS: ACETAMINOPHEN 325 MG TABLET 650 MG PO ×2 (14:52→21:16)
[2023-09-15] MEDS: IBUPROFEN 600 MG TABLET PO ×2 (14:54→21:17)
[2023-09-15] MEDS: LACTATED RINGERS 1,000 ML 100 ML IV (15:00)
--- NOTE | 2023-09-15 15:25 | PT.IIE ---
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 arthropathy, lumbar Former smoker History of COVID-19 (~2020) History of echocardiogram (~2019) Hyperlipidemia Labile hypertension Left ventricular hypertrophy Lumbosacral spondylosis with radiculopathy Moderate aortic stenosis Pneumonia Primary osteoarthritis of right shoulder Prostatic hypertrophy 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 Spinal stenosis Physical Therapy Inpatient Evaluation/Re-Eval M1 PT/OT-IP Prior Functional Status Start: 09/15/23 16:42 Freq: NEEDED Status: Active Protocol: Document 09/15/23 15:25 AB (Rec: 09/15/23 16:54 AB [id number]) Medical Review Prior Functional Status Medical History Reviewed Yes Communication able to make needs known Mobility and Gait pt stated that he was independent with all mobilities and ambulation without AD Social History Household Members spouse Living Arrangements House Number of Floors (Floors) One Floor Number of Stairs To Enter/Railing? no steps to enter Home Environment Standard Height Toilet,Walk in Shower Home Equipment Front Wheel Walker,Straight Cane,Raised Toilet Seat w/ Armrests,Grab Bars In Shower M2 PT-IP Current Condition Start: 09/15/23 16:42 Freq: NEEDED Status: Active Protocol: Document 09/15/23 15:25 AB (Rec: 09/15/23 16:54 AB [id number]) Physical Therapy Current Condition Current Condition Evaluation Date 09/15/23 Treatment Diagnosis s/p L BASSAM anterior approach; difficulty in walking Onset Date 09/15/23 M3 PT-IP Subjective Start: 09/15/23 16:42 Freq: NEEDED Status: Active Protocol: Document 09/15/23 15:25 AB (Rec: 09/15/23 16:54 AB [id number]) Subjective Physical Therapy Visit Type Type Initial Evaluation Visit Start Time 15:25 Visit Stop Time 16:20 Total Visit Minutes 55 Number of SALON SUPERVISOR Visits 0 Physical Therapy Visit Comments Patient Comments agreeable to do PT Therapy Pain Assessment Pain Present Pain Present Denied Pain M4 PT-IP Mobility and Gait Start: 09/15/23 16:42 Freq: NEEDED Status: Active Protocol: Document 09/15/23 15:25 AB (Rec: 09/15/23 16:54 AB [email or web address]) PT-Bed Mobility Assessment Supine to Sit Supine to Sit Standby Assistance Sit to Supine Sit to Supine Standby Assistance PT-Transfer Assessment Sit to and From Stand Sit to and from Stand Contact Guard Assistance,1 Person Assistance,Use of Upper Extremities Equipment Transfer Assistive Device Gait Belt,Front Wheeled Walker Orthotic/Prosthetic Devices or Brace: No Transfers Transfer Destination Bed Transfer Ability Level of Assist Contact Guard Assistance,1 Person Assistance,Use of Upper Extremities Comments Mobility Comments pt sitting on EOB and family in room. Spouse will be the person who will assist pt at home. educated pt and family regarding pt's anterior hip precaution LLE. post-op folder provided and contents reviewed. pt completed sit<>supine SBA and cues for techniques. pt repeated x 2. pt able to sit on EOB SBA. BP in sittin /46. pt with no c/o dizziness /lightheadedness. pt completed sit to stand CGA and ambulated in room using FWW ~ 25 ft. cues for precautions especially during turning and stepping backwards. caregiver training conducted. educated spouse on how to use safety belt and how to assist pt. spouse was able to put safety belt on with the help of the pt. spouse assisted pt with sit to stand and ambulated with pt in room ~ 30 ft using FWW CGA. pt sat back on EOB. pt wants to just stay seated on EOB. BP at end of PT: 104/48. pt and family without further concerns. informed nurse regarding pt's mobility. Gait Assessment Gait Distance (Feet) 30 Able to Maintain Weight Bearing Status Yes During Gait Assistive Devices Assistive Device Gait Belt,Front Wheeled Walker Orthotic/Prosthetic Devices or Brace: No Gait Deviations General Gait Pattern Antalgic,Decreased Stride Length,Decreased Feet Clearance Factors Limiting Gait Function Factors Limiting Gait Function Decreased Activity Tolerance, Decreased Strength,Limited Range of Motion,Poor Balance, Poor Safety Awareness PT-Balance Assessment Sitting Balance and Reactions Static Sitting Balance Ability Normal Dynamic Sitting Balance Ability Good Standing Balance and Reactions Static Standing Balance Ability Fair Dynamic Standing Balance Ability Fair Device Used FWW M5 PT-IP Objective Assessments Start: 09/15/23 16:42 Freq: NEEDED Status: Active Protocol: Document 09/15/23 15:25 AB (Rec: 09/15/23 16:54 AB [id number]) Orientation Orientation/Cognition Level of Alertness Alert Orientation Name,Place,Situation Language Function Ability Hard of Hearing Safety Awareness Decreased Safety Awareness Memory Description No Deficits Noted Gross Range of Motion Lower Extremity ROM Assessment Within Functional Limits Strength Lower Extremity Strength Assessment Left Impaired Hip 3+/5 Knee 4-/5 Coordination Assessment Gross Coordination Gross Coordination WNL Sensation Assessment Sensation Gross Sensation WNL Muscle Tone Muscle Tone WNL Yes M6 PT-IP Treatment Start: 09/15/23 16:42 Freq: NEEDED Status: Active Protocol: Document 09/15/23 15:25 AB (Rec: 09/15/23 16:54 AB [id number]) Physical Therapy Treatment Education Education Provided Precautions,Weight Bearing Status,Post-Op Packet,Safety M7 PT-IP Assessment and Plan Start: 09/15/23 16:42 Freq: NEEDED Status: Active Protocol: Document 09/15/23 15:25 AB (Rec: 09/15/23 16:54 AB [email or web address]) PT Summary Assessment and Plan Potential Rehabilitation Potential Good Status of Condition at Evaluation Evolving Summary Impairments Pain,ROM,Strength,Balance, Coordination,Sensation,Tone, Cognition,Bed Mobility, Transfers,Gait,Activity Tolerance Assessment Summary pt is an 88 y/o M s/p L BASSAM anterior approach. pt has LLE anterior hip precautions and is WBAT. pt requiring CGA with mobility and occassional cues for his hip precautions. caregiver training conducted and spouse was able to assist pt. pt plans to go home with spouse to assist and how outpt PT set up. Goals Bed Mobility Goal Independent Transfer Goal Independent,Front Wheeled Walker Gait Goal Independent,Front Wheel Walker Gait Distance 250 Other Goals improve transfers and ambulation using LRAD/without AD >300 ft mod I Days to Meet Goals 5 Frequency of Treatment Frequency Of Treatment Twice a Day Treatment Plan Physical Therapy Treatment Plan Bed Mobility Training,Transfer Training,Gait Training, Therapeutic Exercise,Balance Retraining,Post Op Education, Discharge Planning,Hot or Cold Pack,Neuromuscular Re-ed, Coordination Retraining,Manual Therapy Precautions Anterior Hip Precautions No Hip Extension,No Hip External Rotation Weight Bearing Status Weight Bearing Status Weight Bear as Tolerated Allowed Weight Bearing Amount (enter % LLE WBAT or #) (%) Recommendations To Nursing Amount of Assist Needed 1 Person Assist Discharge Recommendations PT Discharge Recommendations Home with Assistance, Outpatient PT Transportation Needs at Discharge Private Vehicle
--- NOTE | 2023-09-15 16:33 | PC.NURSE ---
Patient arrived to room 224 at 1415 this afternoon, A&OX4, slightly groggy. BP's are soft but stable on RA. He denies n/v, or dizziness. Patient reports pain well controlled to L hip at 4/10. Aquacel to left hip c/d/i, he denies numbness down LLE. MD Tracyt at bedside this afternoon encouraging patient to get dressed and stand up to use FWW. He initially has a soft BP upon sitting up SBP 86, MD aware and recommended patient to sit up for 15-20 minutes and to continue to move and ambulate. He is cleared by PT this afternoon for discharge home and career specialist training was completed with at the bedside.Patient is awaiting to void currently and drinking several cups of water. This evening he decided he would feel more assured to stay the night rather than trying to discharge this evening. MD Kendall confirmed plan for patient to discharge home tomorrow morning.
[2023-09-15] MEDS: LOSARTAN 50 MG TABLET PO (21:18)
[2023-09-15] MEDS: ASPIRIN EC 81 MG TABLET PO (21:19)
[2023-09-15] MEDS: DOCUSATE 100 MG CAPSULE PO (21:19)
[2023-09-16] MEDS: OXYCODONE IR 5 MG TABLET PO (01:35)
[2023-09-16] MEDS: CEFAZOLIN 2 GM/100 ML PREMIX 100 ML IV (03:37)
[2023-09-16 05:23] LABS: Hematocrit 28.6 % (41-53); Hemoglobin 9.8 g/dL (13.5-17.5)
[2023-09-16] MEDS: ASPIRIN EC 81 MG TABLET PO (08:14)
[2023-09-16] MEDS: ACETAMINOPHEN 325 MG TABLET 650 MG PO (08:14)
[2023-09-16] MEDS: DOCUSATE 100 MG CAPSULE PO (08:15)
[2023-09-16] MEDS: IBUPROFEN 600 MG TABLET PO (08:15)
[2023-09-16 08:45] VITALS: BP 106/49; PULSE 84; RESP 18; TEMP 36.6; O2SAT 93
--- NOTE | 2023-09-16 09:00 | PM.DS.1 ---
History of Present Illness History of Present Illness Date Patient Seen: 09/16/23 Time Patient Seen: 09:00 Chief complaint: OPB Narrative: Operative Date/Time/Diagnoses Date of procedure: 09/15/23 Pre-op diagnosis: Left hip arthritis Post-op diagnosis: same Procedure & Clinicians Procedure: Left total hip arthroplasty Same procedure as scheduled: Yes Surgeon: Abad Kendall Hl7 Interface Developer: Rosa Gonzalez Anesthesia Type: General, Peripheral nerve block and Local Operative Notes Prosthetic devices, grafts, tissues, transplants, or devices: Depuy Rawlings 56 mm cup with no screws, Depuy Actis size 6 high offset stem, 36 mm +5 ceramic head Estimated Blood Loss (mL): 200 Discharge Providers Provider Discharge Date: 09/16/23 Primary care physician: Betsy Carter MD Consults: 09/05/23 12:22 Consult to Anesthesiology Routine Comment: Consulting Provider: Anesthesiologist Reason for consultation: Surgeon requested re: Cardiac history 09/15/23 06:00 Consult to Anesthesiology Routine Comment: Consulting Provider: Anesthesiologist Reason for consultation: Regional block for post operative pain control 09/15/23 14:06 Consult to Discharge Planning Routine Comment: Consult to Physical Therapy Evaluate & Treat Comment: Physician Instructions: post op BASSAM protocol Discharge provider: Rosa Gonzalez PA-C Summary Hospital Course Discharge Diagnosis: Left hip osteoarthritis, s/p left total hip arthroplasty Hospital Course: Mr Friedman's hospital course was unremarkable. On the morning of POD# 1, he was feeling well and wanted to go home. He was eating and voiding without difficulty and his pain was well-controlled with oral medication. He was evaluated by PT and they felt he was appropriate for discharge home with family. Exam Vital Signs (past 8 hours): - 09/16/23 07:45 09/16/23 08:45 Temperature 97.8 F Pulse Rate 84 Respiratory Rate 18 Blood Pressure 106/49 L Pulse Oximetry 93 Oxygen Delivery Method Room Air Oxygen Delivery Method Room Air Oxygen Flow Rate 0 Narrative Exam Narrative: 5/5 strength in hip flexors, quadriceps, hamstrings, DF, PF, EHL on left. Sensation to light touch intact throughout LLE. Calf soft, compressible, nontender. Aquacel dressing CDI. 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 Plan of Treatment: Discharge home, multimodal pain control, ASA BID x 6 weeks for VTE prophylaxis, outpt PT, f/u in office in 2 weeks as scheduled. Discharge Plan Discharge Plan Patient Disposition: Home Provider Discharge Comment: Discharge home following mobilization. Postop prescriptions sent previously Discharge orders & Medications Discharge Orders: Discharge (Order); Ordered 09/15/23 Ordered By: Abad Kendall Prescriptions: Continued celecoxib 200 mg capsule See Rx Instructions .ROUTE .COMPLEX Qty: 90 2RF Dose Instruction: TAKE ONE(1) CAPSULE BY MOUTH ONCE DAILY Rx Instructions: TAKE ONE(1) CAPSULE BY MOUTH ONCE DAILY acetaminophen 325 mg Tablet 325 mg PO Q6H PRN (Reason: Pain) nitroglycerin 0.4 mg Tablet, Sublingual 0.4 mg SUBLINGUAL Q5M PRN (Reason: Chest Pain) Rx Instructions: Place 1 tablet under the tongue every 5 minutes as needed for chest pain. Maximum 3 tabs in 15 minutes and then call 911 betamethasone dipropionate 1 each ointment 0.05 % (w/v) topical PRN PRN (Reason: Dry Skin) losartan 50 mg Tablet 50 mg PO BEDTIME Follow up/Referrals: Betsy Carter MD [Primary Care Provider] - Abad Kendall MD [Physician] - As previously scheduled (Follow up w/ Dr Kendall on 09/26/2023 @ 1:30 pm at [facility] in [place]. ) Diet/Activity/Treatments Diet: Diet as Tolerated Activity: Weightbearing as tolerated to left hip. Anterior hip precautions. Cold/Heat Therapy: Ice to hip as needed for pain. Skin/Wound/Dressing Care Report to your healthcare provider any signs of infection, such as:: chills, fever, night sweats, unusual drainage and unusual redness Dressing: May shower. Leave Aquacel dressing in place until follow up in office. No bathing or otherwise soaking incision. Call the office if the dressing becomes saturated inside. Visit Report/Discharge Packet Instructions: DI for Hip Replacement Stand Alone Forms: Patient Portal/API, Surgery Discharge Discharge Data Primary Care Provider: Betsy Carter Attending Provider: Abad Kendall Quality VTE Deep Vein Thrombosis/Pulmonary Embolism Present on Admission: No
--- NOTE | 2023-09-16 09:22 | PC.NURSE ---
Pt discharged home at 0920, escorted off floor in wheelchair accompanied by spouse and hospital staff. IV removed, discharged teaching provided including follow up appointments, wound care and medications. Questions and concerns addressed. Patient left with all belongings.
--- NOTE | 2023-09-16 10:36 | PC.NURSE ---
Pt discharged at 0920, escorted off floor in wheelchair accompanied by spouse and hospital staff. Discharge teaching completed including medications, follow up appointments and wound care. Questions and concerns addressed. Patient left the floor with all belongings.
--- NOTE | 2023-09-16 12:22 | CM.DANOTE ---
Patient is an 88 yo male who was admitted on 09/15/23 for LTHA. Pt has [facility] for insurance and his PCP is Betsy Carter. EMR was reviewed. Per Ortho PA, pt tolerated procedure well, pain controlled, worked with PT, and tolerating diet and medically stable to discharge home today. Per PT, recommending safe d/c home with spouse assist and outpt PT. Pt active and independent at baseline and spouse present for CG training and to provide transport home. Per RN, pt and spouse attempting to catch the [employer] ferry back to [place] today and making reservations for the ferry and no identified concerns at this time. No bedside assessment completed due to triage needs, no identified discharge planning needs, and pt left the hospital prior to Multidisciplinary Rounds. Plan: Patient to d/c home via spouse POV to catch the [employer] [place] ferry today and no further SW needs at this time. NATALI Joe Discharge Planning/Care Management Pre-Anesthesia Assessment Start: 09/04/23 13:45 Freq: Status: Discharge Protocol: Document 09/04/23 13:45 CAB (Rec: 09/04/23 14:41 CAB [id number]) Pre-Anesthesia Assessment Preferred Name Jose Patient Information Reviewed Via Phone Assessment Assessment Completed With Patient Primary Care Provider Betsy Carter Comment PCP pre-op 08/09/23 w/ clearance form scanned Seen Specialist in Last 12 Months Yes Specialist Seen Pca,Orthopedist Primary Language Stateless Preferred Language Stateless Height 172.72 cm Weight 70.307 kg Body Mass Index (BMI) 23.6 Hearing Ability Hearing Impaired Visual Impairment Partially Limited Visual Assist Glasses Dentition Type Teeth, Natural Present Barriers to Learning Auditory,Visual Other Aids No Hx Anesthesia Reactions No Hx Family Anesthesia Reaction No Hx Malignant Hyperthermia No Hx Blood Transfusions No Hx Blood Transfusion Reaction No Anesthesia Review Requested Yes: Surgeon requested re: Cardiac history. Dianetic Counselor No alcohol intake current alcohol intake frequency 0-2 drinks per day Smoking Status Former smoker Tobacco type pipe how long ago did patient quit smoking 35 years Substance Use Type does not use Pain Present Pain Reported Musculoskeletal Symptoms Abnormal Gait,Difficulty Walking,Joint Pain History of Falling (Recent or History of No ) Patient is completely paralyzed or No completely immobile Mental Status Oriented to own ability Is patient on oxygen? No Does patient have JOY/SOB No Hx Sleep Apnea No CPAP/BIPAP use not prescribed Currently Taking a Beta Alicia No Can You Climb a Flight of Stairs Without Yes SOB Hx Chest Pain No Hx SOB No Hx Syncope or Dizziness No Anti-Coagulant Therapy No Has a Pca Yes Pca name Dr. Brown @ [facility] Cardiac Testing No Hx Pacemaker/ICD No Pacemaker Rep Required? No Cardiac Clearance Received Yes Comment Cardiac records scanned Additional comment Pt is very active with gardening, vegetable stand Diet Type At Home Regular Gastrointestinal Symptoms Loose Stools Bladder Pattern Nocturia Urinary Catheter Present No Hx Urinary Self Catheterization No Diabetes No Hx Drug Resistant Organism No Presence of External or Internal Medical Yes: Mesh, right shoulder Devices prothesis Received a COVID vaccine? No Marital Status Lives With spouse Current Living Arrangements House Number of Floors (Floors) One Floor Number of Stairs To Enter/Railing? No stairs Support System Spouse Does the Patient Have Assistance After Yes Surgery Patient Discharge Plan Description Return Home Comment Pt not advised on length of stay per surgeon Additional comment Lives on [place] Feels Safe in Current Environment Yes Been Physically Hurt or Threatened By a No Person in Current Environment Do you have thoughts of harming yourself None or others? Are you currently considering suicide? No Do you have a plan to hurt yourself or No Plan others? Do You Have Any Spiritual Beliefs That No May Affect Your HC Choices? Do You Have Any Cultural Practices That No May Affect Your HC Choices? Comment Adventist Who Can We Speak to About Patient's Care Family, friends Identifying Code for Release of Patient Declines to issue Information Health Care Proxy/Next of Kin Jessica () Health Care Proxy or cell: [phone] Emergency Contact Name Jessica () Emergency Contact or cell: [phone] Advance Directives? Yes Power of Plaster Block Layer Yes Power of Plaster Block Layer Name Jessica () Power of Plaster Block Layer or cell: [phone] PAC Instructions Durable medical equipment, Medications to take/avoid, Nasal antibiotic,No ETOH/ petroleum product on skin DOS, NPO,Post-op transportation,Pre -surgical wash,Sensory aids, Sturdy shoes/comfortable clothes,Do not bring valuables and remove jewelry
== END 2023-09-16 09:30 | disposition home or self-care (01) ==
LOC: OR 07:40 → AC 07:40
PROVIDERS: PCP Family Medicine; Referring Provider Orthopaedic Surgery Adult Reconstructive Orthopaedic Surgery; Visit Provider Orthopaedic Surgery Adult Reconstructive Orthopaedic Surgery
PROC: (CPT 27130; principal; 2023-09-15 10:45)
DX: M16.12 Unilateral primary osteoarthritis, left hip (principal)
CPT/HCPCS: 27130; 36415; 73502; 76000; 82962; 85014; 85018; 97162; 97530; C1776; J0690; J1100; J1170; J2405; J2704; J3010

== ENCOUNTER 2025-03-04 11:00 | Day surgery (SDC) | payer MEDICARE, SELFPAY ==
[2023-09-15 14:14] VITALS: BMI 25.2
[2025-02-20 07:43] VITALS: BMI 25.8
[2025-03-04] VITALS (12 sets, daily range): BP systolic 87–143; BP diastolic 41–98; PULSE 70–123; RESP 13–23; TEMP 35.7–36.5; O2SAT 92–99; BMI 24.3
--- NOTE | 2025-03-04 | DI.RAD.S_ITS ---
PROCEDURE: ORTHO-XR HIP W PEL RT 4V COMPARISON: [facility], CR, XR HIP W PEL IF DONE LT 2V, 09/15/2023, 13:32. [facility], CR, XR HIP W PEL IF DONE LT 2V, 09/15/2023, 12:03. INDICATIONS: ANTERIOR RT HIP IMPRESSION: Fluoroscopic images demonstrate right total hip arthroplasty with unremarkable appearance. Dictated by: Sky Maldonado M.D. on 03/04/2025 at 19:50 Approved by: Sky Maldonado M.D. on 03/04/2025 at 20:00
--- NOTE | 2025-03-04 06:00 | DI.RAD.S_ITS ---
PROCEDURE: XR HIP W PEL IF DONE RT 2V INDICATIONS: TOTAL RIGHT HIP TECHNIQUE: 2 view(s) of the hip acquired. COMPARISON: [facility], KRISTOPHER, ORTHO-XR HIP W PEL RT 4V, 03/04/2025, 15:38. FINDINGS: Bones: Patient is status post right hip arthroplasty, with hardware components in expected positions. The hip joint appears congruent. The visualized bony structures appear intact. Stable appearance of left hip arthroplasty. Soft tissues: Overlying postoperative changes are noted. No suspicious soft tissue densities. IMPRESSION: Expected post-operative appearance of a hip arthroplasty. Approved by: Jayda Carrera M.D.,Ph.D. on 03/04/2025 at 17:47
[2025-03-04] MEDS: CELECOXIB 200 MG CAPSULE PO (13:28)
[2025-03-04] MEDS: VANCOMYCIN 1,000 MG in SODIUM CHLORIDE 0.9% 250 ML 250 MG IV (13:28)
[2025-03-04] MEDS: ACETAMINOPHEN 325 MG TABLET 975 MG PO (13:28)
[2025-03-04] MEDS: LACTATED RINGERS 1,000 ML 42 ML IV ×2 (13:29→16:21)
--- NOTE | 2025-03-04 14:10 | PM.PREOP ---
Pre-operative Note Interval Note History & Physical reviewed/Exam performed by Physician: Yes Changes to H&P: No
--- NOTE | 2025-03-04 14:11 | PM.PREOP ---
Pre-operative Note Interval Note History & Physical reviewed/Exam performed by Physician: Yes Changes to H&P: No
--- NOTE | 2025-03-04 14:15 | PM.OP.1 ---
Operative Date/Time/Diagnoses Date of procedure: 03/04/25 Time of procedure: 14:30 Pre-op diagnosis: right hip AVN Post-op diagnosis: same Procedure & Clinicians Procedure: right total hip arthroplasty anterior approach Same procedure as scheduled: Yes Indications: The patient has had progressively worsening right hip pain with radiographic changes consistent with arthritis. Non-operative management has failed and the patient has requested total hip replacement. The risks, benefits and alternatives to surgery were discussed with the patient prior to proceeding. Risks discussed included, but were not limited to, failure to relieve pain, leg length discrepancy, dislocation, stiffness, infection, nerve damage, deep venous thrombosis, pulmonary embolism, stroke, coma, heart attack, permanent paralysis and , as well as the potential need for eventual revision of the prosthetic. Surgeon: Anna Quispe Middleware Architect: Felicita Michael Anesthesia Type: General Operative Notes Findings: Severe right hip AVN, adequate stability, adequate bone Closure Type: primary Specimen(s): none sent Prosthetic devices, grafts, tissues, transplants, or devices: Quispe and nephew R3 54mm, neutral poly liner,one 6.5 mm screw, polar stem with collar standard offset size 2 with collar, 36 by +0 co ch Estimated Blood Loss (mL): 250 Blood products transfused: none Procedure in detail: The patient was brought to the operating room. Patient was carefully positioned in the supine position. Time-out was performed and antibiotics were given. Anesthesia was induced. He was positioned in the on the table in order to allow hyperextension of the hip. The right lower extremity was prepped and draped in a standard sterile fashion. An anterior right hip incision was made 1 fingerbreadth lateral to the anterior superior iliac spine and extended distally towards the greater trochanter. Dissection was carried out through skin and subcutaneous tissues. Superficial hemostasis was achieved. The fascia over the tensor fascia taylor was defined and incised with a knife. Two Allis clamps were used to grasp the fascia. Tensor fascia taylor was retracted laterally. A gelpi retractor was placed. Dissection was carried out down along the neck. The circumflex vessels were carefully identified and cauterized with the Aqua Mantis. A general assistant was needed for intraoperative retraction and safe implantation of the components. Dr. Lim assisted during the procedure and was essential for intraoperative retraction and visualization. There was good visualization of the femoral neck. A Cobra was placed superior to the neck and the gluteus fibers were carefully stripped from that superior aspect of the capsule. A 2nd retractor was placed along the inferior aspect of the neck. The rectus insertion along the capsule was partially released. A 3rd retractor that was then gently placed over the rim of the acetabulum under the rectus. Capsule was carefully incised and released from the intertrochanteric line circumferentially superior to the mid sagittal line and inferiorly to the mid sagittal line until the lesser trochanter was palpable. A tag stitch was placed both in the superior and inferior limb of the capsular insertion. Along the acetabulum capsule was also released up to the mid sagittal 12:00 position. A portion of the labrum was resected. A saw was used to perform an osteotomy at the level of the intertrochanteric line and the junction of the superior femoral neck leaving approximately 1 finger breath of residual inferior neck above the lesser trochanter. A 2nd cut was made along the femoral neck at the base of the head and a napkin ring of neck was removed. Corkscrew was placed in the femoral head and the head was removed without difficulty. Retractors were then repositioned around the acetabulum. Residual labrum was resected and additional osteophytes were removed. A reamer that was 4 mm below the templated size was placed by hand in the acetabulum and it was reamed to centralize the acetabulum. It was then reamed up to 2 under the templated size and fluoroscopy was brought in to confirm the position of the reaming and depth of reaming. I reamed 1 under the anticipated size. A trial cup was placed and noted that it was appropriately sized and fluoroscopy confirmed position and depth. The component was open and inserted without difficulty fluoroscopic imaging was used to confirm that the cup had been adequately seated and was well positioned. It was further stabilized with a single screw. Neutral poly liner was placed. The cup was tested and noted to be stable. Attention was then directed to the femur. The femur was gently hyperextended additional capsular release was performed as needed in order to allow adequate visualization of the proximal femur with elevation of the femur. Patient was placed in a hyperextended slightly adducted position with maximum external rotation. Box osteotome was used to check for any residual neck as well as sclerotic bone along the trochanter. [place] pepper was placed in the femur. Additional broaching was performed. Canal finder was used to determine the alignment of the canal and position. Size 1 broach was placed. The canal was then appropriately broached up to the templated size as long as there was adequate stability of the broach and serial advancement of the broach without excessive impingement. Specific attention was directed at avoiding varus attempting to direct the distal aspect of the broach more anteriorly and avoiding excessive anteversion. Trial reduction showed acceptable range of motion, good stability, no posterior impingement, yazdanism of leg length and appropriate lateral shuck. I also hyperflexed the hip and checked that there was no impingement anteriorly and there was good stability with flexion, adduction and internal rotation. Marcaine and Exparel were injected. The stem was placed without difficulty. Repeat trial reduction and x-ray showed acceptable overall position, length, and no evidence of the femoral fracture. Final head was placed. Wound was meticulously irrigated with normal saline. The hip was reduced and additional Exparel and Marcaine were injected. The capsule was closed with interrupted nonabsorbable sutures. The fascia of the tensor was closed with interrupted and running Vicryl. No drain was placed. Any tensor fascia taylor muscle that appeared to be contused or injured which was a minimal amount was carefully resected. Capsule around the tensor was injected with Exparel and Marcaine. The skin was closed with barbed stitches for the subcutaneous tissue and skin. We also used surgical glue. The wound was dressed sterilely. Brief Betadine soak was also used and was meticulously irrigated with normal saline. Patient was transferred to recovery room in satisfactory condition. Complications: none Post-operative Condition: stable Disposition: Acute Care Plan for aftercare: The patient will be maintained on a standard total hip replacement protocol with weight bearing as tolerated and anterior hip precautions. The patient will receive Aspirin and sequential compression devices for DVT prophylaxis. The patient will be discharged home when safe for the home environment.
[2025-03-04] MEDS: CEFAZOLIN 2 GM/100 ML PREMIX 100 ML IV ×2 (14:33→21:44)
[2025-03-04] MEDS: TRANEXAMIC ACID 1,000 MG VIAL 1000 MG INJ ×2 (14:33→16:45)
--- NOTE | 2025-03-04 14:57 | SUR.OPER ---
Supine on padded [place] table with bilateral legs secured in padded positioning boots and suspended in positioning spars, operative leg in traction per surgeon. Head on one pillow. Arm on non-operative side secured on padded armboard <90 degrees abduction. Arm on operative side padded and resting across chest then secured with tape over sheet. Padded perineal post in place per surgeon. Dr. Quispe in room during positioned, all pressure points padded and covered, approved.
[2025-03-04] MEDS: BUPIVACAINE 0.25% W/ EPI 30 ML VIAL 60 ML INJ (15:11)
[2025-03-04] MEDS: BUPIVACAINE LIPOSOME 266 MG/20 ML VIAL INJ (15:12)
--- NOTE | 2025-03-04 17:16 | EKG_ITS ---
[place] [id number] [place] [id number] Test Date: 2025-03-04 Pat Name: George Friedman Department: Room: 219 Gender: Male Net Mender: : [id number] Requested By: Order Number: [id number] Reading MD: Pritesh Pennington MD Measurements Intervals [place] Rate: 113 P: [place]: 168 QRS: -12 QRSD: 88 T: 82 QT: 378 QTc: 518 Interpretive Statements Sinus tachycardia ST & T wave abnormality, consider lateral ischemia Electronically Signed On 03-05-2025 6:48:57 PDT by Pritesh Pennington MD
--- NOTE | 2025-03-04 17:23 | PM.CN ---
History of Present Illness Consult details Date Patient Seen: 03/04/25 Time Patient Seen: 18:23 Chief complaint: OPB Narrative: The patient is a an 89-year-old male who is status post an anterior hip replacement today. In the intraoperative phase he had episode of bradycardia then tachycardia. The patient was transferred to the PACU after receiving 1100 mL of fluid and having an estimated 200 mL EBL. He woke up without difficulty and denied dyspnea, or chest pain. An ECG indicated possible lateral ST segment depressions. He does have a history of CAD with a stent about 6 months ago. It was unclear if this was at [facility] or [facility]. He was followed by Dr. Brown of Cardiology at [facility]. He also has known moderate aortic stenosis in his being watched without any current recommendations for a TAVR. The patient was comfortable after transfer the rodrigues and denies any chest pain or dyspnea. He was minimal hip pain. He was not been having exertional dyspnea recently, or syncope. He was no other complaints. He was in normal sinus rhythm with a blood pressure of 90/60 with a map of 64. Meds Home Medications and Allergies Home Medications Medication Instructions Recorded Confirmed Type nitroglycerin 0.4 mg sublingual 0.4 mg sublingual Q5M PRN Chest 11/16/20 02/20/25 History tablet Pain betamethasone dipropionate 0.05 % (w/v) topical PRN PRN Dry 11/23/20 02/20/25 History Skin losartan 50 mg tablet 50 mg PO BEDTIME 09/04/23 03/04/25 History celecoxib 200 mg capsule See Rx Instructions .Route 06/25/24 03/04/25 Rx .COMPLEX #90 caps aspirin 81 mg capsule 81 mg PO DAILY 02/20/25 03/04/25 History atorvastatin 40 mg tablet 40 mg PO BEDTIME 02/20/25 03/04/25 History clopidogrel 75 mg tablet 75 mg PO DAILY 02/20/25 03/04/25 History tamsulosin 0.4 mg capsule 0.4 mg PO BEDTIME 02/20/25 03/04/25 History Allergies Allergy/AdvReac Type Severity Reaction Status Date / Time No Known Drug Allergies Allergy Verified 03/04/25 13:31 Review of Systems Review of Systems Narrative: All else reviewed and otherwise unremarkable except as noted in the history and physical. Exam Vital Signs (past 8 hours): - 03/04/25 13:34 Temperature 97.3 F L Pulse Rate 70 Respiratory Rate 21 Blood Pressure 143/98 H Pulse Oximetry 98 Oxygen Delivery Method Room Air Oxygen Delivery Method Room Air Narrative Exam Narrative: NAD, alert and oriented, fluent speech, calm. Normocephalic skull, EOMI, anicteric sclera, symmetric pupils. Oropharynx unremarkable, no droop. Neck supple, midline trachea, no adenopathy. Lungs clear, normal rate and effort. Heart regular, 4/6 systolic murmur gallop or rub. Abdomen is soft, non distended and non tender. Extremities are free of edema. Skin is free of rash or lesions. Joints are not swollen or deformed. Judgment appears to be normal. Objective ECG Impression: Normal sinus rhythm with lateral ST segment changes with an element of depression. 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 He is DNR, Tobacco & Substance Use Smoking Status: Former smoker alcohol intake: current Assessment & Plan Assessment & Plan narrative: 1. Intraoperative bradycardia and tachycardia, resolved. 2. Nonspecific ST segment changes in lateral leads, postoperative. 3. CAD with history of PCI in the last 6 months, active. 4. Moderate aortic stenosis, active. Plan: -monitor vital signs -watch for chest pain or dyspnea -serial troponins to rule out perioperative myocardial infarction. -antiplatelet agents and beta blockade once blood pressure improves. The patient is DNR, he confirms this today in person. Time-Based Coding :: 35 min spent with patient and on the chart (including review of chart, obtaining history, exam, reviewing outside data, placing orders, documenting exam and treatment plan, and counseling patient) on 03/04.
[2025-03-04 17:36] LABS: Add Manual Diff / Slide Review NO; Basophils Absolute Auto 0 /uL (0-100); Basophils Percent Auto 0.3 % (0-2); Eosinophils Absolute Auto 100 /uL (0-450); Eosinophils Percent Auto 0.8 % (2-4); Hematocrit 29.9 % (41-53); Hemoglobin 10.1 g/dL (13.5-17.5); Lymphocytes Absolute Auto 1300 /uL (1100-4500); Mean Corpuscular HGB Conc 33.6 % (30-36); Mean Corpuscular Hemoglobin 31.9 PG (26-34); Mean Corpuscular Volume 95.1 fL (80-100); Monocytes Absolute Auto 200 /uL (0-900); Monocytes Percent Auto 2.2 % (3-14); Neutrophils Absolute Auto 8900 /uL (1500-7000); Neutrophils Percent Auto 84.7 % (50-75); Platelet Count 221 X10^3/uL (150-400); Red Blood Cell Count 3.15 X10^6/uL (4.5-5.9); Red Cell Distribution Width 16.3 % (11.6-14.8); White Blood Cell Count 10.5 X10^3/uL (4.5-11.0)
[2025-03-04 17:45] LABS: Prothrombin Time 11.4 SECONDS (9.4-12.5)
[2025-03-04 17:48] LABS: Alanine Aminotransferase 24 IU/L (<50); Albumin 3.3 g/dL (3.5-5.0); Albumin Globulin Ratio 1.3 (1.0-2.8); Alkaline Phosphatase 87 U/L (38-126); Aspartate Aminotransferase 39 IU/L (17-59); Bilirubin Total 0.6 mg/dL (0.2-1.3); Blood Urea Nitrogen 18 mg/dL (9-20); Calcium 8.4 mg/dL (8.4-10.2); Carbon Dioxide 24 mmol/L (22-32); Chloride 104 mmol/L (98-107); Creatine Kinase 296 U/L (55-170); Estimated Glomerular Filt Rate > 60 mL/min (>60); Globulin 2.5 g/dL (1.7-4.1); Glucose 169 mg/dL (70-99); HEMOLYSIS < 15 (0-50); PTT Partial Thromboplastin Tim 31 SECONDS (25.1-36.5); Potassium 3.9 mmol/L (3.4-5.1); Sodium 136 mmol/L (137-145); Total Protein 5.8 g/dL (6.3-8.2)
[2025-03-04 18:00] LABS: Troponin I 0.021 ng/mL (0.01-0.034)
--- NOTE | 2025-03-04 18:50 | CM.MNRNOTE ---
Patient admitted for r.anterior hip. Dressing to hip is an aquacel and is cdi. Patient is alert and oriented x4, skin check done and can be seen under physical assessment. Scds applied to bilateral lower extremities. Patient has a hx of htn, increased cholestrol, heart murmur, and some aortic issues. He is on tele and his heart rate is regular at this time. BP wnl. Pt ppx2 and he is visiting with his son now.
[2025-03-04] MEDS: ATORVASTATIN 20 MG TABLET 40 MG PO (18:58)
[2025-03-04] MEDS: ASPIRIN EC 81 MG TABLET PO (18:58)
[2025-03-04] MEDS: ACETAMINOPHEN 325 MG TABLET 650 MG PO (18:58)
[2025-03-04] MEDS: LACTATED RINGERS 1,000 ML 100 ML IV (20:32)
[2025-03-04] MEDS: TAMSULOSIN 0.4 MG CAPSULE PO (20:32)
[2025-03-04] MEDS: OXYCODONE IR 5 MG TABLET PO (20:37)
[2025-03-04 21:55] LABS: Troponin I 0.029 ng/mL (0.01-0.034)
[2025-03-05 00:30] VITALS: BP 117/56; PULSE 64; RESP 18; TEMP 35.9; O2SAT 97
[2025-03-05 04:29] LABS: Hematocrit 27.4 % (41-53); Hemoglobin 9.4 g/dL (13.5-17.5)
[2025-03-05 05:00] VITALS: BP 125/48; PULSE 62; RESP 18; TEMP 35.9; O2SAT 97
[2025-03-05] MEDS: CEFAZOLIN 2 GM/100 ML PREMIX 100 ML IV (06:38)
--- NOTE | 2025-03-05 07:30 | P.PN_ITS ---
Subjective Subjective Interval history: Summary: The patient is a an 89-year-old male who is status post an anterior hip replacement today. In the intraoperative phase he had episode of bradycardia then tachycardia. The patient was transferred to the PACU after receiving 1100 mL of fluid and having an estimated 200 mL EBL. He woke up without difficulty and denied dyspnea, or chest pain. An ECG indicated possible lateral ST segment depressions. He does have a history of CAD with a stent about 6 months ago. It was unclear if this was at [facility] or [facility]. He was followed by Dr. Brown of Cardiology at [facility]. He also has known moderate aortic stenosis in his being watched without any current recommendations for a TAVR. The patient was comfortable after transfer the rodrigues and denies any chest pain or dyspnea. He was minimal hip pain. He was not been having exertional dyspnea recently, or syncope. He was no other complaints. He was in normal sinus rhythm with a blood pressure of 90/60 with a map of 64. Initial troponin normal. S: He is doing well this morning. No dyspnea or chest pain. No arrhythmia overnight. He will have physical therapy evaluation and likely go home today. Troponins remained normal. Exam Vital Signs (past 8 hours): - 03/05/25 00:30 03/05/25 05:00 Temperature 96.7 F L 96.7 F L Pulse Rate 64 62 Respiratory Rate 18 18 Blood Pressure 117/56 L 125/48 L Pulse Oximetry 97 97 Oxygen Flow Rate 2 0 Oxygen Delivery Method Nasal Cannula Oxygen Flow Rate 0 Narrative Exam Narrative: NAD, alert and oriented. Fluent speech. Lungs are clear, normal rate and effort. Heart is regular, harsh 4/6 systolic murmur and no gallop or rub. Abdomen is soft, non distended. Extremities are free of edema. Objective ECG Impression: Intervals [place] Rate: 113 P: [place]: 168 QRS: -12 QRSD: 88 T: 82 QT: 378 QTc: 518 Interpretive Statements Sinus tachycardia ST & T wave abnormality, consider lateral ischemia Labs 03/05/25 03:50 03/04/25 17:18 Labs: Laboratory Results - last 24 hr 03/04/25 03/04/25 03/05/25 17:18 21:07 03:50 WBC 10.5 RBC 3.15 L Hgb 10.1 L 9.4 L Hct 29.9 L 27.4 L MCV 95.1 MCH 31.9 MCHC 33.6 RDW 16.3 H Plt Count 221 Neut % (Auto) 84.7 H Lymph % (Auto) 12.0 L [place] % (Auto) 2.2 L Eos % (Auto) 0.8 L Baso % (Auto) 0.3 Neut # (Auto) 8900 H Lymph # (Auto) 1300 [place] # (Auto) 200 Eos # (Auto) 100 Baso # (Auto) 0 PT 11.4 INR 1.0 APTT 31 Sodium 136 L Potassium 3.9 Chloride 104 Carbon Dioxide 24 BUN 18 Creatinine 0.90 Estimated GFR > 60 BUN/Creatinine Ratio 20.0 Glucose 169 H Calcium 8.4 Total Bilirubin 0.6 AST 39 ALT 24 Alkaline Phosphatase 87 Total Creatine Kinase 296 H Troponin I 0.021 0.029 Total Protein 5.8 L Albumin 3.3 L Globulin 2.5 Albumin/Globulin Ratio 1.3 PFSH Medical History Asthma History of COVID-19 (~2020) Hyperlipidemia Retinoschisis Prostatic hypertrophy Cardiac murmur Left ventricular hypertrophy Former smoker Spinal stenosis Pneumonia Labile hypertension Moderate aortic stenosis 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 He is DNR, Smoking Status: Former smoker alcohol intake: current Assessment & Plan Assessment & Plan narrative: 1. Intraoperative bradycardia and tachycardia, resolved. 2. Nonspecific ST segment changes in lateral leads, postoperative. 3. CAD with history of PCI in the last 6 months, active. 4. Moderate aortic stenosis, active. Plan: -no further workup, stable for discharge per Orthopedics. Hospital Medicine will sign off. Time-Based Coding :: [TOTAL MINUTES] spent with patient and on the chart (including review of chart, obtaining history, exam, reviewing outside data, placing orders, documenting exam and treatment plan, and counseling patient) on [DATE].
[2025-03-05 07:32] VITALS: BP 115/47; PULSE 66; RESP 20; TEMP 36.1; O2SAT 96
--- NOTE | 2025-03-05 09:10 | PT.IIE ---
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) Hx of heart artery stent (08/14/24) Status post hernia repair Status post rotator cuff repair Medical History (Last Reviewed 03/04/25 @ 18:25 by Al Stephenson MD) Asthma Cardiac murmur 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 arthropathy, lumbar Former smoker History of COVID-19 (~2020) Hyperlipidemia Labile hypertension Left ventricular hypertrophy Lumbosacral spondylosis with radiculopathy Moderate aortic stenosis Pneumonia Primary osteoarthritis of right shoulder Prostatic hypertrophy 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 Activities of Daily Living and IADL's per OT note: Pt states having more difficulty with his socks and shoes and having to assist him. Social History Household Members spouse Living Arrangements House Number of Floors (Floors) One Floor Number of Stairs To Enter/Railing? no steps to enter Home Environment Standard Height Toilet,Walk in Shower Home Equipment Front Wheel Walker,Four Wheel Walker,Straight Cane,Raised Toilet Seat Without Armrests, Shower Seat without Backrest, Grab Bars In Shower Additional Social History Comment Pt states his to be able to assist him. M2 PT-IP Current Condition Start: 03/05/25 12:42 Freq: NEEDED Status: Active Protocol: Document 03/05/25 09:10 AB (Rec: 03/05/25 12:52 [id number]) Physical Therapy Current Condition Current Condition Evaluation Date 03/05/25 Treatment Diagnosis s/p r BASSAM anterior; difficulty in walking Onset Date 03/04/25 M3 PT-IP Subjective Start: 03/05/25 12:42 Freq: NEEDED Status: Active Protocol: Document 03/05/25 09:10 AB (Rec: 03/05/25 12:52 [id number]) Subjective Physical Therapy Visit Type Type Initial Evaluation Visit Start Time 09:10 Visit Stop Time 09:45 Number of SUPERANNUATION CLERK Visits 0 Physical Therapy Visit Comments Patient Comments agreeable to do PT Therapy Pain Assessment Pain Present Pain Present Denied Pain M4 PT-IP Mobility and Gait Start: 03/05/25 12:42 Freq: NEEDED Status: Active Protocol: Document 03/05/25 09:10 AB (Rec: 03/05/25 12:52 [id number]) PT-Bed Mobility Assessment Supine to Sit Supine to Sit Standby Assistance Sit to Supine Sit to Supine Standby Assistance PT-Transfer Assessment Sit to and From Stand Sit to and from Stand Standby Assistance Equipment Transfer Assistive Device Gait Belt,Front Wheeled Walker Orthotic/Prosthetic Devices or Brace: No Transfers Transfer Destination Bed,Chair Transfer Technique ambulated Transfer Ability Level of Assist Standby Assistance Comments Mobility Comments pt standing next to the chair and son in room. pt sat back on chair. pt requested to use the toilet and completed sit to stand SBA. pt ambulated to the toilet using FWW SBA. sit to stand from the toilet SBA and ambulated towards the sink using FWW SBA. able to maintain standing balance SBA while completing handwashing. can be be impulsive and cues provided for safety. pt ambulated to the chair and rested. obtained PLOF and home set up. educated on anterior hip precautions and post-op folder provided. sit to stand from the chair SBA and ambulated to EOB SBA. completed bed mobility SBA. pt ambulated more in room using FWW ~ 30 ft SBA and sat back on chair. positioned pt on the chair. call light and table placed within reach. pt without further concerns. Gait Assessment Gait Gait Assistance Required: Standby Assistance Distance (Feet) 30 Able to Maintain Weight Bearing Status Yes During Gait Assistive Devices Assistive Device Gait Belt,Front Wheeled Walker Orthotic/Prosthetic Devices or Brace: No Gait Deviations General Gait Pattern Antalgic,Decreased Feet Clearance Factors Limiting Gait Function Factors Limiting Gait Function Decreased Activity Tolerance, Decreased Strength,Limited Range of Motion,Pain,Poor Balance,Poor Safety Awareness PT-Balance Assessment Sitting Balance and Reactions Static Sitting Balance Ability Normal Dynamic Sitting Balance Ability Good Standing Balance and Reactions Static Standing Balance Ability Good Dynamic Standing Balance Ability Fair Device Used FWW M5 PT-IP Objective Assessments Start: 03/05/25 12:42 Freq: NEEDED Status: Active Protocol: Document 03/05/25 09:10 AB (Rec: 03/05/25 12:52 AB [id number]) Orientation Orientation/Cognition Level of Alertness Alert Orientation Name,Place,Situation Language Function Ability No Deficits Noted Safety Awareness Decreased Safety Awareness Memory Description No Deficits Noted Gross Range of Motion Lower Extremity ROM Assessment Within Functional Limits Strength Lower Extremity Strength Assessment Right Impaired Hip 3-/5 Knee 4-/5 Muscle Tone Muscle Tone WNL Yes M6 PT-IP Treatment Start: 03/05/25 12:42 Freq: NEEDED Status: Active Protocol: Document 03/05/25 09:10 AB (Rec: 03/05/25 12:52 AB [id number]) Physical Therapy Treatment Education Education Provided Precautions,Weight Bearing Status,Post-Op Packet,Safety M7 PT-IP Assessment and Plan Start: 03/05/25 12:42 Freq: NEEDED Status: Active Protocol: Document 03/05/25 09:10 AB (Rec: 03/05/25 12:52 [id number]) PT Summary Assessment and Plan Potential Rehabilitation Potential Good Status of Condition at Evaluation Stable Summary Impairments Pain,ROM,Strength,Balance, Coordination,Sensation,Tone, Cognition,Bed Mobility, Transfers,Gait,Activity Tolerance Assessment Summary pt is an 89 y/o M s/p R BASSAM anterior approach POD 1. pt with R hip anterior precautions and is WBAT. pt requiring SBA with mobility and plans to go home with spouse to assist him. pt has outpt PT set up. Goals Bed Mobility Goal Independent Transfer Goal Independent,Front Wheeled Walker Gait Goal Independent,Front Wheel Walker Gait Distance 200 Days to Meet Goals 3 Frequency of Treatment Frequency Of Treatment Twice a Day Treatment Plan Physical Therapy Treatment Plan Bed Mobility Training,Transfer Training,Gait Training, Therapeutic Exercise,Balance Retraining,Post Op Education, Discharge Planning,Hot or Cold Pack,Neuromuscular Re-ed, Coordination Retraining,Manual Therapy Precautions Anterior Hip Precautions No Hip Extension,No Hip External Rotation Weight Bearing Status Weight Bearing Status Weight Bear as Tolerated Allowed Weight Bearing Amount (enter % RLE WBAT or #) (%) Recommendations To Nursing Amount of Assist Needed 1 Person Assist Discharge Recommendations PT Discharge Recommendations Home with Assistance, Outpatient PT Transportation Needs at Discharge Private Vehicle - PT assist 1
--- NOTE | 2025-03-05 10:37 | OT.IP.EVAL ---
Current Diagnoses Unilateral primary osteoarthritis, right hip (03/04/25) Surgery Performed Operation Date: 03/04/25 14:30 Actual Procedures p Total Hip Arthroplasty/Anterior Approach(Right) - Anna Quispe MD Past Medical History (Last Reviewed 03/04/25 @ 18:25 by Al Stephenson MD) Asthma Cardiac murmur 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 arthropathy, lumbar Former smoker History of COVID-19 (~2020) Hyperlipidemia Labile hypertension Left ventricular hypertrophy Lumbosacral spondylosis with radiculopathy Moderate aortic stenosis Pneumonia Primary osteoarthritis of right shoulder Prostatic hypertrophy 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 Spinal stenosis Surgical History (Last Reviewed 03/04/25 @ 18:25 by Al Stephenson MD) Cataract extraction status History of colonoscopy History of revision of total replacement of right shoulder joint (11/23/20) 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 Activities of Daily Living and IADL's Pt states having more difficulty with his socks and shoes and having to assist him. Social History Household Members spouse Living Arrangements House Number of Stairs To Enter/Railing? Pt has no steps to get into his house. Pt has a flight of steps to the attic with right rail up, but states does not have to go up there initially. Home Environment Standard Height Toilet,Walk in Shower Home Equipment Front Wheel Walker,Four Wheel Walker,Straight Cane,Raised Toilet Seat Without Armrests, Shower Seat without Backrest, Grab Bars In Shower Additional Social History Comment Pt states his to be able to assist him. M2 OT-IP Current Condition Start: 03/05/25 11:23 Freq: Status: Active Protocol: Document 03/05/25 10:12 [facility] (Rec: 03/05/25 11:47 [facility] Desktop) Occupational Therapy Current Condition Current Condition Evaluation Date 03/05/25 Treatment Diagnosis S/P R BASSAM Anterior approach Post Operative Precautions Other Precautions Do not hyperextend hip Weight Bearing Status Weight Bearing Status Weight Bear as Tolerated M3 OT- IP Subjective and Pain Start: 03/05/25 11:23 Freq: Status: Active Protocol: Document 03/05/25 10:12 [facility] (Rec: 03/05/25 11:47 [facility] Desktop) OT- Subjective Occupational Therapy Visit Type Type Initial Evaluation Visit Start Time 10:12 Visit Stop Time 10:37 Occupational Therapy Visit Comments Patient Comments Pt agreed to get up to do grooming needs. Pt's nurse notified that pt had bottle on Oxycodone in his grooming kit . Patient/Caregiver Goals TO go home. OT Pain Assessment Pain When Pain Assessed At Rest Pain Present Pain Present Pain Reported M4 OT- IP ADL's Start: 03/05/25 11:23 Freq: Status: Active Protocol: Document 03/05/25 10:12 [facility] (Rec: 03/05/25 11:47 [facility] Desktop) OT [id number] General Evaluation Self-Feeding Ability Independent OT ADL-Grooming General Evaluation Areas Needing Assistance Retrieving/Set-up of Grooming Items Comments OT Grooming Comments VC to have the FWW in front of him. OT ADL-Oral Care General Eval Oral Care Ability Independent Comments Oral Care Comments Able to do while standing with FWW. OT ADL-Dressing Comments OT Dressing Comments Pt already mostly dressed and insists that his will continue to assist with his socks and shoes. Pt having no interest in use of LB dressing equipment. Educated to dress his RLE first and take out last. OT ADL-Toileting Comments OT Toileting Comments Pt suggested to take the urinal home as pt has to go often at night. OT ADL-Bathing Comments OT Bathing Comments Went over bandage need while showering. Pt will have assist at home. M5 OT- IP IADL's Start: 03/05/25 11:23 Freq: Status: Active Protocol: Document 03/05/25 10:12 [facility] (Rec: 03/05/25 11:47 [facility] Desktop) OT-Instrumental Activities of Daily Living Home Safety Awareness Awareness of Need for Assistance at Home Good Awareness Ability to Problem Solve Emergency Able to Problem Solve Situations Meal Preparation Meal Preparation Caregiver Provides Assist Librarian Special Library Librarian Special Library Caregiver Provides Assist M6 OT- IP Functional Cognition Start: 03/05/25 11:23 Freq: Status: Active Protocol: Document 03/05/25 10:12 [facility] (Rec: 03/05/25 11:47 [facility] Desktop) Cognitive Factors Limiting Selfcare Function Cognitive Ability Level of Alertness Alert Patient Orientation Name,Place,Situation Attention Span Ability Capable of Focused Attention, Capable of Sustained Attention Ability to Follow Commands Able to Follow One Step Commands Safety Awareness Underestimates Need for Assistance Cognitive Comments Cognitive Assessment Comments Pt needing vc for FWW safety and to have the FWW in front of him. Pt is insistent that his to assist with his LB dressing needs at this time. OT- Vision and Hearing OT- Hearing Assessment OT- Hearing Assessment Hearing Impaired M7 OT- IP Mobility and Balance Start: 03/05/25 11:23 Freq: Status: Active Protocol: Document 03/05/25 10:12 [facility] (Rec: 03/05/25 11:47 [facility] Desktop) OT-Transfer Assessment Sit to and From Stand Sit to and from Stand Standby Assistance Transfers Transfer Ability Standby Assistance Technique Transfer Destination Chair Transfer Technique Stand Step Pivot Devices Transfer Assistive Devices Gait Belt,Front Wheeled Walker Comments Mobility Comments SBA to stand and walk to the sink and back with the FWW. VC to hold onto the fww at all times. At times pt lets go of the walker and tries to move without it. OT- Balance Assessment Sitting Balance and Reactions Static Sitting Balance Ability Normal Dynamic Sitting Balance Ability Good Standing Balance and Reactions Static Standing Balance Ability Good Dynamic Standing Balance Ability Fair M8 OT- IP Objective Assessments Start: 03/05/25 11:23 Freq: Status: Active Protocol: Document 03/05/25 10:12 [facility] (Rec: 03/05/25 11:47 [facility] Desktop) OT Gross Range of Motion Upper Extremity Range of Motion Assessment Bilaterally Impaired OT Strength Upper Extremity Strength Assessment Bilaterally Impaired M9 OT- IP Assessment and Plan Start: 03/05/25 11:23 Freq: Status: Active Protocol: Document 03/05/25 10:12 [facility] (Rec: 03/05/25 11:47 [facility] Desktop) OT Summary Assessment and Plan Potential Rehabilitation Potential Excellent Analytic Complexity at Evaluation Low Summary OT Impairments Strength,Balance,Functional Mobility,Dressing,Toileting, Bathing,Toilet Transfers, Shower Transfers Progress Towards Goals Progressing Toward Goals Assessment Summary Pt low complexity and main barriers are pt is a little impulsive and needing vc to keep the FWW in front of him at all times. Pt to go home with assist when medically stable. Goals Self-Feeding Goal Independent Grooming Goal Independent Dressing Goal Minimal Assistance Toileting Goal Independent Bathing Goal Minimal Assistance Toilet Transfer Goal Independent Shower Transfer Goal Standby Assistance Days to Meet Goals 2 Frequency of Treatment Frequency Of Treatment Once a Day Treatment Plan OT Treatment Plan ADL Training,Functional Cognition Training,Functional Mobility,Patient/Family Education,Discharge Planning Discharge Recommendations OT Discharge Recommendations Home with 15/05 Assist Available Transportation Needs at Discharge Private Vehicle
--- NOTE | 2025-03-05 12:55 | PC.NURSE ---
Day shift: Discharge information went over with patient. Patient stated understanding, all questions answered. PIV + tele removed prior to discharge. All belongings with patient. FLORENTIN Bal escorted patient via wheelchair to exit.
--- NOTE | 2025-03-05 20:25 | PM.DS.1 ---
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 Discharge Providers Provider Discharge Date: 03/05/25 Primary care physician: Betsy Carter MD Consults: 02/20/25 09:27 Consult to Anesthesiology Routine Comment: Consulting Provider: Anesthesiologist Reason for consultation: Surgeon requested re: Cardiac History 03/04/25 06:00 Consult to Anesthesiology Routine Comment: Consulting Provider: Anesthesiologist Reason for consultation: Regional block for post operative pain control Has provider been notified: No 03/04/25 17:12 Consult to Hospitalist Service Routine Comment: Consulting Provider: Al Stephenson Reason for consultation: tele monitoring, cardiac 03/04/25 18:35 Consult to Discharge Planning Routine Comment: Consult to Occupational Therapy Evaluate & Treat Comment: Physician Instructions: Evaluate and treat Consult to Physical Therapy Evaluate & Treat Comment: Physician Instructions: post op BASSAM protocol Discharge provider: Anna Quispe MD Summary Hospital Course Discharge Diagnosis: Right hip avascular necrosis and right hip osteoarthritis, right total hip arthroplasty, coronary artery disease, cardiac arrhythmia Hospital Course: The patient was taken to the operating room he underwent a right total hip arthroplasty. Was an anterior approach. He had severe destruction of his right hip and he tolerated the procedure well. Intraoperatively he did have some problems with some cardiac arrhythmia. An EKG was done in the recovery room with suggested possible slight demand ischemia. He was seen by the hospitalist and had a troponin drawn which was normal. He was stable overnight. He did well with physical therapy. He had a supportive son at the bedside and was cleared by Physical therapy. He was felt to be stable for transfer to home. Status at Discharge Cognitive/behavioral status at discharge: oriented Functional status at discharge: uses cane/walker Overall status at discharge: patient is progressing back to baseline Time Spent with Patient Time spent: Less than 30 minutes Exam Vital Signs (past 8 hours): Oxygen Delivery Method Nasal Cannula Oxygen Flow Rate 0 Narrative Exam Narrative: Alert oriented appropriate, minimal pain with range motion in the hip, calf soft, dressing intact, cardiac rhythm stable at 80, no apparent distress Objective Labs 03/05/25 03:50 03/04/25 17:18 Labs: Laboratory Results - last 24 hr 05/13/25 05/14/25 21:07 03:50 Hgb 9.4 L Hct 27.4 L Troponin I 0.029 [facility] Medical History Asthma History of COVID-19 (~2020) Hyperlipidemia Retinoschisis Prostatic hypertrophy Cardiac murmur Left ventricular hypertrophy Former smoker Spinal stenosis Pneumonia Labile hypertension Moderate aortic stenosis 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 He is DNR, Smoking Status: Former smoker alcohol intake: current Discharge Assessment & Plan Assessment and Plan Assessment: He was doing reasonably well felt to be stable for discharge to home. Plan of Treatment: Outpatient physical therapy. Discharge Plan Discharge Plan Patient Disposition: Home Discharge orders & Medications Discharge Orders: Discharge (Order); Ordered 03/05/25 Ordered By: Anna Quispe Prescriptions: Continued celecoxib 200 mg capsule See Rx Instructions .ROUTE .COMPLEX Qty: 90 2RF Dose Instruction: TAKE ONE(1) CAPSULE BY MOUTH ONCE DAILY Rx Instructions: TAKE ONE(1) CAPSULE BY MOUTH ONCE DAILY nitroglycerin 0.4 mg Tablet, Sublingual 0.4 mg SUBLINGUAL Q5M PRN (Reason: Chest Pain) Rx Instructions: Place 1 tablet under the tongue every 5 minutes as needed for chest pain. Maximum 3 tabs in 15 minutes and then call 911 betamethasone dipropionate 1 each ointment 0.05 % (w/v) topical PRN PRN (Reason: Dry Skin) losartan 50 mg Tablet 50 mg PO BEDTIME atorvastatin 40 mg Tablet 40 mg PO BEDTIME clopidogrel 75 mg Tablet 75 mg PO DAILY tamsulosin 0.4 mg Capsule 0.4 mg PO BEDTIME aspirin 81 mg Capsule 81 mg PO DAILY Follow up/Referrals: Betsy Carter MD [Primary Care Provider] - Anna Quispe MD [Physician] - 03/14/25 11:00 am (appt:03/14 @ 11:[address] Quispe @ [facility] ) Diet/Activity/Treatments Diet: Diet as Tolerated Activity: Walk multiple times a day. Cold/Heat Therapy: Use ice multiple times a day. Skin/Wound/Dressing Care Report to your healthcare provider any signs of infection, such as:: chills, fever, night sweats, increased pain, unusual drainage and unusual redness Dressing: Leave dressing on. Okay to shower. Visit Report/Discharge Packet Instructions: DI for Hip Replacement, DI for Prescription Opioid Use Stand Alone Forms: Patient Portal/API, Surgery Discharge Discharge Data Primary Care Provider: Betsy Carter Attending Provider: Anna Quispe
== END 2025-03-05 12:50 | disposition home or self-care (01) ==
LOC: OR 11:06 → AC 12:46
PROVIDERS: Anesthesiology; Hospitalist; PCP Family Medicine; Referring Provider Orthopaedic Surgery; Visit Provider Orthopaedic Surgery
PROC: (CPT 27130; principal; 2025-03-04 14:30)
DX: M87.051 Idiopathic aseptic necrosis of right femur (principal); M25.751 Osteophyte, right hip; I10 Essential (primary) hypertension; Z87.891 Personal history of nicotine dependence; I25.10 Atherosclerotic heart disease of native coronary artery without angina pectoris; Z95.818 Presence of other cardiac implants and grafts; I35.0 Nonrheumatic aortic (valve) stenosis; I49.5 Sick sinus syndrome
CPT/HCPCS: 27130; 36415; 73502; 73503; 76000; 80053; 82550; 84484; 85014; 85018; 85025; 85610; 85730; 93005; 93010; 97161; 97165; 97530; C1776; J0330; J0666; J0690; J1100; J1171; J2405; J2704; J3010